=== PATIENT | male | born 1955 | race African-American/Black ===

== ENCOUNTER 2019-09-20 03:13 | Inpatient (IN) | payer OTHER ==
[~2019-09-20] VITALS: Ht 193 cm; Wt 165.4 kg
--- NOTE | 2019-09-20 03:50 | PHYS DOC ---
Past Medical History Past Medical History: CAD, Diabetes-Type II, High Cholesterol, Hypertension Additional Past Surgical Histo: Cardiac stents, R leg tissue removal, partial toe amputation on left foot Smoking Status: Never Smoker Alcohol Use: None Drug Use: None General Adult EDM: Chief Complaint: SHORTNESS OF BREATH HPI: HPI: Patient is a 64 year [id number]-qkj male presents via EMS with report of midsternal chest pain with associated nausea and shortness of breath x2 days. Reports some leg swelling and calf tenderness. Patient does report being diagnosed with COVID-19 approximately 2 weeks ago. Denies fever or chills. Denies cough. Denies trauma. Review of Systems: Review of Systems: Constitutional: Denies fever or chills Eyes: Denies redness or eye pain HENT: Denies nasal congestion or sore throat Respiratory: Denies cough; reports shortness of breath Cardiovascular: Reports chest pain; denies palpitations GI: Denies abdominal pain, nausea, or vomiting : Denies dysuria or hematuria Musculoskeletal: Denies back pain; reports chronic bilateral lower extremity edema Integument: Denies rash or skin lesions Neurologic: Denies headache, focal weakness or sensory changes Complete systems were reviewed and found to be within normal limits, except as documented in this note. Heart Score: HEART Score for Chest Pain: HEART Score for Chest Pain Response (Comments) Value History Moderately Suspicious 1 ECG Normal 0 Age >45 - < 65 1 Risk Factors >3 Risk Factors or Hx CAD 2 Troponin >3 x Normal Limit 2 Total 6 Risk Factors: Risk Factors: DM, Current or recent (<one month) smoker, HTN, HLP, family history of CAD, obesity. Risk Scores: Score 0 - 3: 2.5% MACE over next 6 weeks - Discharge Home Score 4 - 6: 20.3% MACE over next 6 weeks - Admit for Clinical Observation Score 7 - 10: 72.7% MACE over next 6 weeks - Early Invasive Strategies Physical Exam: PE: Constitutional: Well developed, obese, no acute distress, non-toxic appearance HENT: Normocephalic, atraumatic Eyes: Conjunctiva normal, no discharge Neck: Normal range of motion, supple Lungs & Thorax: No respiratory distress, equal chest rise and fall Abdomen: Soft, no tenderness, obese Skin: Warm, dry, no erythema, no rash Extremities: No tenderness, ROM intact, 3+ bilateral lower extremity edema Neurologic: Alert and oriented X 3, no focal deficits noted Psychologic: Affect normal, judgment normal EKG: EKG: @0334 NSR at 63bpm, NO ST elevation, QRS 114ms, QT/QTc 428/441ms Radiology/Procedures: Radiology/Procedures: PROCEDURE: CHEST AP ONLY AP chest. HISTORY: Chest pain, dyspnea AP view was taken of the chest. There is no pneumothorax or pleural effusion. Lungs are free of infiltrates. Heart is normal in size. IMPRESSION: 1. No acute chest disease. Electronically signed by: Juan Jose Wiggins MD (09/20/2019 7:52 AM) [id number] Course & Med Decision Making: Course & Med Decision Making Pertinent Labs and Imaging studies reviewed. (See chart for details) Patient presents with report of shortness of breath and chest pain that has been ongoing for the past 2 days. Patient also complains of some nausea. History of recent positive COVID test approximately 2 weeks ago. COVID precautions in place. Afebrile. Sats stable. Patient also with significant cardiac risk factors. EKG stable. Labs obtained and posted to chart. Initial troponin elevated. Aspirin given. BNP within normal limits. Chest x-ray without acute process. Patient requiring admission for further evaluation and treatment. Discussed with Dr. Goddard (hospitalist) who is in agreement with admission. Cardiology consult placed. Discussed findings and plan with patient, who acknowledges understanding and agreement. COVID-19 CRITERIA: The patient was evaluated during the global COVID-19 pandemic, and that diagnosis was suspected/considered upon their initial presentation. Their evaluation, treatment and testing was consistent with current guidelines for patients who present with complaints or symptoms that may be related to COVID-19. Dragon Disclaimer: Dragon Disclaimer: This electronic medical record was generated, in whole or in part, using a voice recognition dictation system. Departure Departure Impression: Primary Impression: Dyspnea Qualified Codes: R06.00 - Dyspnea, unspecified Additional Impressions: COVID-19 Elevated troponin Disposition: ADMITTED INPATIENT Admitting Physician: MIRELA (Courtney Randolph) Condition: GUARDED Justicifation of Admission Dx: Justifications for Admission: Justification of Admission Dx: Yes Comments: Dyspnea, Elevated troponin, COVID COVID-19 Assessment: COVID-19 Patient Risks: Age 65 or older: No Sign of co-morbidity: Yes Exp to person + for COVID: Yes Exp to PUI: No Travel from affected area: No Lower respiratory symptoms: Yes Fever: No PPE Use: Full PPE with N95 mask or PAPR: Yes Critical Care Time Critical care time was 30 minutes which includes time at bedside, spent in discussion of patient's care with specialists and/or family members, with interpretation of laboratory and/or radiological studies and is exclusive of procedures. DAVID SHAH DO Sep 20, 2019 03:50
[2019-09-20] MEDS ORDERED: LIDO:MAALOX 1:1 20 ML SINGLE DOSE. PO ONE (04:45)
[2019-09-20 05:13] LABS: BASO # 0.1 x10^3/uL (0.0-0.2); BASO % 1 % (0-3); EOS % 1 % (0-3); HEMOGLOBIN 15.4 g/dL (13.0-17.5); LYMPH # 1.8 x10^3/uL (1.0-4.8); LYMPH % 25 % (24-48); MEAN CORPUSCULAR HEMOGLOBIN 28 pg (25-35); MEAN CORPUSCULAR HGB CONC 33 g/dL (31-37); MEAN CORPUSCULAR VOLUME 83 fL (79-100); MONO # 0.5 x10^3/uL (0.0-1.1); MONO % 7 % (0-9); NEUT # 4.9 x10^3/uL (1.8-7.7); NEUT % 67 % (31-73); PLATELET COUNT 173 x10^3/uL (140-400); RED BLOOD COUNT 5.58 x10^6/uL (4.30-5.70); WHITE BLOOD COUNT 7.3 x10^3/uL (4.0-11.0)
[2019-09-20] MEDS ORDERED: ASPIRIN 325 MG TABLET ONE ×2 (05:18→16:47)
[2019-09-20] MEDS ORDERED: ONDANSETRON PF 4 MG/2 ML VIAL. ONE (05:22)
[2019-09-20 05:23] LABS: PROTHROMBIN TIME PATIENT 12.5 SEC (11.7-14.0)
[2019-09-20] MEDS ORDERED: ONDANSETRON ODT 4 MG TAB.RAPDIS. ONE (05:25)
[2019-09-20 05:29] LABS: CALCIUM 9.6 mg/dL (8.5-10.1); CREATININE 1.1 mg/dL (0.7-1.3); GFR 81.8
[2019-09-20] MEDS ORDERED: ASPIRIN 325 MG TABLET PO ONE ×2 (05:30→17:00)
[2019-09-20] MEDS ORDERED: ONDANSETRON PF 4 MG/2 ML VIAL. IV PRN ×2 (05:45→13:45)
[2019-09-20] MEDS ORDERED: DEXTROSE 50% 25 GM / 50ML DISP.SYRIN. IV PRN (05:45)
[2019-09-20] MEDS ORDERED: fentaNYL PF VIAL 100 MCG/2 ML VIAL IV PRN (05:45)
[2019-09-20 05:52] LABS: ALBUMIN 4.1 g/dL (3.4-5.0); ALBUMIN/GLOBULIN RATIO 1.1 (1.0-1.7); TOTAL BILIRUBIN 0.5 mg/dL (0.2-1.0); TOTAL PROTEIN 7.9 g/dL (6.4-8.2)
[2019-09-20 06:06] LABS: BILIRUBIN,URINE NEGATIVE (NEG); CLARITY,URINE CLEAR; COLOR,URINE YELLOW; NITRITE,URINE NEGATIVE (NEG); PH,URINE 5.5 (<5.0-8.0); PROTEIN,URINE 100 mg/dL (NEG-TRACE)
[2019-09-20 06:10] LABS: BACTERIA,URINE FEW /HPF (0-FEW); HYALINE CASTS, URINE FEW /HPF; RBC,URINE OCC /HPF (0-2); SQUAMOUS EPITHELIAL CELL,UR MOD /LPF
--- NOTE | 2019-09-20 06:38 | EKG ---
[facility] [address] [place] [address] Test Date: 2019-09-20 Test Time: 03:34:48 Pat Name: TRENT LOPEZ Department: Room: Gender: M Equal Opportunity Assistant: : 1955 Requested By: DAVID SHAH Order Number: [id number] Reading MD: Measurements Intervals [place] Rate: 63 P: 47 PA: 192 QRS: 7 QRSD: 114 T: 41 QT: 428 QTc: 441 Interpretive Statements SINUS RHYTHM OTHERWISE NORMAL ECG RI6.01 No previous ECG available for comparison
--- NOTE | 2019-09-20 07:55 | RAD ---
AP chest. HISTORY: Chest pain, dyspnea AP view was taken of the chest. There is no pneumothorax or pleural effusion. Lungs are free of infiltrates. Heart is normal in size. IMPRESSION: 1. No acute chest disease. Electronically signed by: Juan Jose Wiggins MD (09/20/2019 7:52 AM) [id number]
[2019-09-20] MEDS: INSULIN LISPRO 300 UNITS/3 ML VIAL. SQ SCH ×3 (08:00→17:00)
--- NOTE | 2019-09-20 08:35 | PDOC1 ---
History and Physical Date of Admission Date of Admission DATE: 09/20/19 TIME: 08:35 Identification/Chief Complaint Chief Complaint 64 year oldsml-tuhx-auu male presents via EMS with report of midsternal chest pain with associated nausea and shortness of breath x2 days. Reports some leg swelling and calf tenderness. Patient does report being diagnosed with COVID-19 approximately 2 weeks ago. Denies fever or chills. Denies cough. Denies trauma. RAPID COVID-19 HERE NEG 09/19 troponinn elevated overnight Past Medical History Past Medical History Past Medical History Past Medical History: CAD, Diabetes-Type II, High Cholesterol, Hypertension Additional Past Surgical Histo: Cardiac stents, R leg tissue removal, partial toe amputation on left foot Smoking Status: Never Smoker Alcohol Use: None Drug Use: None FHX OBESITY Family History Family History: Hypertension Social History Smoke: <1 pack per day ALCOHOL: occassional Drugs: None Current Problem List Problem List Problems Medical Problems: (1) COVID-19 Status: Acute (2) Dyspnea Status: Acute (3) Elevated troponin Status: Acute Current Medications Current Medications Current Medications Multi-Ingredient Mouthwash/Gargle (Gi Cocktail) 20 ml 1X ONCE PO Last administered on 09/20/19at 05:15; Start 09/20/19 at 04:45; Stop 09/20/19 at 05:18; Status DC Aspirin (Lainey Aspirin) 325 mg 1X ONCE PO Last administered on 09/20/19at 05:23; Start 09/20/19 at 05:30; Stop 09/20/19 at 05:31; Status DC Aspirin (Lainey Aspirin) 325 mg STK-MED ONCE .ROUTE ; Start 09/20/19 at 05:18; Stop 09/20/19 at 05:18; Status DC Ondansetron HCl (Zofran) 4 mg STK-MED ONCE .ROUTE ; Start 09/20/19 at 05:22; Stop 09/20/19 at 05:23; Status DC Ondansetron HCl (Zofran Odt) 4 mg STK-MED ONCE .ROUTE ; Start 09/20/19 at 05:25; Stop 09/20/19 at 05:26; Status DC Ondansetron HCl (Zofran) 4 mg PRN Q8HRS PRN IV NAUSEA/VOMITING 1ST CHOICE; Start 09/20/19 at 05:45; Stop 09/21/19 at 05:44 Fentanyl Citrate (Fentanyl 2ml Vial) 50 mcg PRN Q2HRS PRN IV SEVERE PAIN 7-10; Start 09/20/19 at 05:45 Insulin Human Lispro (HumaLOG) 0-5 UNITS TIDWMEALS SQ ; Start 09/20/19 at 08:00 Dextrose (Dextrose 50%-Water Syringe) 12.5 gm PRN Q15MIN PRN IV SEE COMMENTS; Start 09/20/19 at 05:45 Allergies Allergies: Coded Allergies: sulfamethoxazole (Verified Allergy, Severe, 09/20/19) trimethoprim (Verified Allergy, Severe, 09/20/19) ROS Review of System Review of Systems: Review of Systems: Constitutional: Denies fever or chills Eyes: Denies redness or eye pain HENT: Denies nasal congestion or sore throat Respiratory: Denies cough; reports shortness of breath Cardiovascular: Reports chest pain; denies palpitations GI: Denies abdominal pain, nausea, or vomiting : Denies dysuria or hematuria Musculoskeletal: Denies back pain; reports chronic bilateral lower extremity edema Integument: Denies rash or skin lesions Neurologic: Denies headache, focal weakness or sensory changes 14 PT systems were reviewed and found to be within normal limits, except as documented Physical Exam Physical Exam Constitutional: Well developed, obese, no acute distress, non-toxic appearance HENT: Normocephalic, atraumatic Eyes: Conjunctiva normal, no discharge Neck: Normal range of motion, supple Lungs & Thorax: No respiratory distress, equal chest rise and fall Abdomen: Soft, no tenderness, obese Skin: Warm, dry, no erythema, no rash Extremities: No tenderness, ROM intact, 3+ bilateral lower extremity edema Neurologic: Alert and oriented X 3, no focal deficits noted Psychologic: Affect normal, judgment normal General: Alert, Oriented X3, Cooperative, No acute distress HEENT: Atraumatic, PERRLA, Mucous membr. moist/pink Abdomen: Normal bowel sounds, Soft Rectal Exam: not examined Extremities: No cyanosis Neuro: Normal speech, Cranial nerves 3-12 NL Psych/Mental Status: Mood NL Vitals Vitals Vital Signs Date Time Temp Pulse Resp B/P (MAP) Pulse Ox O2 Delivery O2 Flow Rate FiO2 09/20/19 07:11 65 169/81 (110) 98 Room Air 09/20/19 03:14 97.7 18 97.7 Labs Labs Laboratory Tests Test 09/20/19 05:00 09/20/19 05:30 White Blood Count 7.3 x10^3/uL (4.0-11.0) Red Blood Count 5.58 x10^6/uL (4.30-5.70) Hemoglobin 15.4 g/dL (13.0-17.5) Hematocrit 46.0 % (39.0-53.0) Mean Corpuscular Volume 83 fL (79-100) Mean Corpuscular Hemoglobin 28 pg (25-35) Mean Corpuscular Hemoglobin Concent 33 g/dL (31-37) Red Cell Distribution Width 15.0 % (11.5-14.5) Platelet Count 173 x10^3/uL (140-400) Neutrophils (%) (Auto) 67 % (31-73) Lymphocytes (%) (Auto) 25 % (24-48) Monocytes (%) (Auto) 7 % (0-9) Eosinophils (%) (Auto) 1 % (0-3) Basophils (%) (Auto) 1 % (0-3) Neutrophils # (Auto) 4.9 x10^3/uL (1.8-7.7) Lymphocytes # (Auto) 1.8 x10^3/uL (1.0-4.8) Monocytes # (Auto) 0.5 x10^3/uL (0.0-1.1) Eosinophils # (Auto) 0.0 x10^3/uL (0.0-0.7) Basophils # (Auto) 0.1 x10^3/uL (0.0-0.2) Prothrombin Time 12.5 SEC (11.7-14.0) Prothromb Time International Ratio 1.0 (0.8-1.1) Activated Partial Thromboplast Time 24 SEC (24-38) Sodium Level 138 mmol/L (136-145) Potassium Level 4.0 mmol/L (3.5-5.1) Chloride Level 100 mmol/L (98-107) Carbon Dioxide Level 26 mmol/L (21-32) Anion Gap 12 (6-14) Blood Urea Nitrogen 15 mg/dL (8-26) Creatinine 1.1 mg/dL (0.7-1.3) Estimated GFR (Cockcroft-Gault) 81.8 BUN/Creatinine Ratio 14 (6-20) Glucose Level 241 mg/dL (70-99) Lactic Acid Level 2.0 mmol/L (0.4-2.0) Calcium Level 9.6 mg/dL (8.5-10.1) Magnesium Level 2.0 mg/dL (1.8-2.4) Ferritin 219 ng/mL (26-388) Total Bilirubin 0.5 mg/dL (0.2-1.0) Aspartate Amino Transf (AST/SGOT) 38 U/L (15-37) Alanine Aminotransferase (ALT/SGPT) 26 U/L (16-63) Alkaline Phosphatase 178 U/L (46-116) Lactate Dehydrogenase 252 U/L (85-227) Creatine Kinase 138 U/L (39-308) Creatine Kinase MB (Mass) 2.3 ng/mL (0.0-3.6) Creatine Kinase MB Relative Index 1.7 % (0-4) Troponin I Quantitative 0.197 ng/mL (0.000-0.055) EB-Oav-V-Type Natriuretic Peptide 147 pg/mL (0-124) Total Protein 7.9 g/dL (6.4-8.2) Albumin 4.1 g/dL (3.4-5.0) Albumin/Globulin Ratio 1.1 (1.0-1.7) Lipase 154 U/L (73-393) Urine Collection Type Unknown Urine Color Yellow Urine Clarity Clear Urine pH 5.5 (<5.0-8.0) Urine Specific [place] 1.015 (1.000-1.030) Urine Protein 100 mg/dL (NEG-TRACE) Urine Glucose (UA) 100 mg/dL (NEG) Urine Ketones (Stick) 15 mg/dL (NEG) Urine Blood Trace (NEG) Urine Nitrite Negative (NEG) Urine Bilirubin Negative (NEG) Urine Urobilinogen Dipstick 1.0 mg/dL (0.2 mg/dL) Urine Leukocyte Esterase Negative (NEG) Urine RBC Occ /HPF (0-2) Urine WBC 1-4 /HPF (0-4) Urine Squamous Epithelial Cells Mod /LPF Urine Bacteria Few /HPF (0-FEW) Urine Hyaline Casts Few /HPF Urine Mucus Mod /LPF Laboratory Tests Test 09/20/19 05:00 09/20/19 05:30 White Blood Count 7.3 x10^3/uL (4.0-11.0) Red Blood Count 5.58 x10^6/uL (4.30-5.70) Hemoglobin 15.4 g/dL (13.0-17.5) Hematocrit 46.0 % (39.0-53.0) Mean Corpuscular Volume 83 fL (79-100) Mean Corpuscular Hemoglobin 28 pg (25-35) Mean Corpuscular Hemoglobin Concent 33 g/dL (31-37) Red Cell Distribution Width 15.0 % (11.5-14.5) Platelet Count 173 x10^3/uL (140-400) Neutrophils (%) (Auto) 67 % (31-73) Lymphocytes (%) (Auto) 25 % (24-48) Monocytes (%) (Auto) 7 % (0-9) Eosinophils (%) (Auto) 1 % (0-3) Basophils (%) (Auto) 1 % (0-3) Neutrophils # (Auto) 4.9 x10^3/uL (1.8-7.7) Lymphocytes # (Auto) 1.8 x10^3/uL (1.0-4.8) Monocytes # (Auto) 0.5 x10^3/uL (0.0-1.1) Eosinophils # (Auto) 0.0 x10^3/uL (0.0-0.7) Basophils # (Auto) 0.1 x10^3/uL (0.0-0.2) Prothrombin Time 12.5 SEC (11.7-14.0) Prothromb Time International Ratio 1.0 (0.8-1.1) Activated Partial Thromboplast Time 24 SEC (24-38) Sodium Level 138 mmol/L (136-145) Potassium Level 4.0 mmol/L (3.5-5.1) Chloride Level 100 mmol/L (98-107) Carbon Dioxide Level 26 mmol/L (21-32) Anion Gap 12 (6-14) Blood Urea Nitrogen 15 mg/dL (8-26) Creatinine 1.1 mg/dL (0.7-1.3) Estimated GFR (Cockcroft-Gault) 81.8 BUN/Creatinine Ratio 14 (6-20) Glucose Level 241 mg/dL (70-99) Lactic Acid Level 2.0 mmol/L (0.4-2.0) Calcium Level 9.6 mg/dL (8.5-10.1) Magnesium Level 2.0 mg/dL (1.8-2.4) Ferritin 219 ng/mL (26-388) Total Bilirubin 0.5 mg/dL (0.2-1.0) Aspartate Amino Transf (AST/SGOT) 38 U/L (15-37) Alanine Aminotransferase (ALT/SGPT) 26 U/L (16-63) Alkaline Phosphatase 178 U/L (46-116) Lactate Dehydrogenase 252 U/L (85-227) Creatine Kinase 138 U/L (39-308) Creatine Kinase MB (Mass) 2.3 ng/mL (0.0-3.6) Creatine Kinase MB Relative Index 1.7 % (0-4) Troponin I Quantitative 0.197 ng/mL (0.000-0.055) HL-Rqm-K-Type Natriuretic Peptide 147 pg/mL (0-124) Total Protein 7.9 g/dL (6.4-8.2) Albumin 4.1 g/dL (3.4-5.0) Albumin/Globulin Ratio 1.1 (1.0-1.7) Lipase 154 U/L (73-393) Urine Collection Type Unknown Urine Color Yellow Urine Clarity Clear Urine pH 5.5 (<5.0-8.0) Urine Specific [place] 1.015 (1.000-1.030) Urine Protein 100 mg/dL (NEG-TRACE) Urine Glucose (UA) 100 mg/dL (NEG) Urine Ketones (Stick) 15 mg/dL (NEG) Urine Blood Trace (NEG) Urine Nitrite Negative (NEG) Urine Bilirubin Negative (NEG) Urine Urobilinogen Dipstick 1.0 mg/dL (0.2 mg/dL) Urine Leukocyte Esterase Negative (NEG) Urine RBC Occ /HPF (0-2) Urine WBC 1-4 /HPF (0-4) Urine Squamous Epithelial Cells Mod /LPF Urine Bacteria Few /HPF (0-FEW) Urine Hyaline Casts Few /HPF Urine Mucus Mod /LPF Images Images AP chest. HISTORY: Chest pain, dyspnea AP view was taken of the chest. There is no pneumothorax or pleural effusion. Lungs are free of infiltrates. Heart is normal in size. IMPRESSION: 1. No acute chest disease. Electronically signed by: Patrick Daly MD (09/20/2019 7:52 AM) [id number] DICTATED and SIGNED BY: PATRICK DALY MD DATE: 09/20/19751 AP chest. HISTORY: Chest pain, dyspnea AP view was taken of the chest. There is no pneumothorax or pleural effusion. Lungs are free of infiltrates. Heart is normal in size. IMPRESSION: 1. No acute chest disease. Electronically signed by: Patrick Daly MD (09/20/2019 7:52 AM) [id number] DICTATED and SIGNED BY: PATRICK DALY MD DATE: 09/20/19751 VTE Prophylaxis Ordered VTE Prophylaxis Devices: Yes VTE Pharmacological Prophylaxi: Yes Assessment/Plan Assessment/Plan impression 1. unstable angina 2. NSTEMI; trop highest 4.3 3. CAD s/p PCI/stent x3 at the [facility] 4. Accelerated hypertension 5. Hyperlipidemia 6. Diabetes, II 7. H/o Hep C 8. morbid obesity 9. partial toe amputation on left foot, remote plan admit consult cardiology covid neg here cvc bed iv bp control heparin drip protocol Justicifation of Admission Dx: Justifications for Admission: Justification of Admission Dx: Yes KIAH PALACIOS MD Sep 20, 2019 08:35
[2019-09-20] MEDS ORDERED: HEPARIN 25,000UTS/250ML PREMIX 250 ML IV PRN (10:30)
[2019-09-20] MEDS ORDERED: HEPARIN for IV BOLUS 10,000 UNIT/10 ML VIAL. IV PRN (10:30)
[2019-09-20 11:00] VITALS: BP 154/77
[2019-09-20] MEDS: MORPHINE SULFATE 2 MG/ML VIAL. IV PRN ×3 (11:27→20:53)
--- NOTE | 2019-09-20 11:49 | PDOC2 ---
IMAN LEE BARREL RIFLER BROACH 09/20/19 1149: CARDIAC CONSULT DATE OF CONSULT Date of Consult DATE: 09/20/19 TIME: 11:12 REASON FOR CONSULT Reason for Consult: Elevated troponin REFERRING PHYSICIAN Referring Physician: Dr. Griggs SOURCE Source: Chart review, Patient HISTORY OF PRESENT ILLNESS HISTORY OF PRESENT ILLNESS This is a 64 yo male who presented secondary to chest pain. Patient reports pain began a couple days ago. Located across his chest. Squeezing in nature. Has been in intermittent. No specific worsening or relieving factors. 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 Would not go away so he came into the ED for further evaluation and treatment. Associated with shortness of breath. No dizziness, diaphoresis, palpitations, or nausea/vomiting. Diagnosed with COVID 08/31/19. Denies any fevers, symptoms. Resides at [facility]. PAST MEDICAL HISTORY Cardiovascular: CAD, HTN, Hyperlipidemia Pulmonary: COPD GI: GERD Hepatobiliary: Hep A/B/C (C) Musculoskeletal: Osteoarthritis Infectious disease: No pertinent hx ENT: No pertinent hx Renal/: No pertinent hx Endocrine: Diabetes Dermatology: No pertinent hx PAST SURGICAL HISTORY Past Surgical History: Other (PCI/stent 05/2015) SOCIAL HISTORY Smoke: <1 pack per day ALCOHOL: other (H/o heavy used. clean 2014) Drugs: Cocaine (last used 2009), Crystal meth (last used 2014) Lives: Roommate ([facility] nursing home ) CURRENT MEDICATIONS CURRENT MEDICATIONS Current Medications Medications (Trade) Dose Ordered Sig/Supriya Route PRN Reason Start Time Stop Time Status Last Admin Dose Admin Multi-Ingredient Mouthwash/Gargle (Gi Cocktail) 20 ml 1X ONCE PO 09/20/19 04:45 09/20/19 05:18 DC 09/20/19 05:15 Aspirin (Lainye Aspirin) 325 mg 1X ONCE PO 09/20/19 05:30 09/20/19 05:31 DC 09/20/19 05:23 ALLERGIES ALLERGIES: Coded Allergies: sulfamethoxazole (Verified Allergy, Severe, 09/20/19) trimethoprim (Verified Allergy, Severe, 09/20/19) ROS Review of System 14 point ROS conducted with pertinent positives noted above in HPI PHYSICAL EXAM General: Alert, Oriented X3, Cooperative, No acute distress HEENT: Atraumatic Lungs: Clear to auscultation, Normal air movement Heart: Regular rate Abdomen: Soft, No tenderness Extremities: No edema, Normal pulses Skin: No breakdown, No significant lesion Neuro: Normal speech, Sensation intact Psych/Mental Status: Mental status NL, Mood NL MUSCULOSKELETAL: Osteoarthritic changes both hands VITALS/I&O VITALS/I&O: Vital Signs Date Time Temp Pulse Resp B/P (MAP) Pulse Ox O2 Delivery O2 Flow Rate FiO2 09/20/19 07:11 65 169/81 (110) 98 Room Air 09/20/19 03:14 97.7 18 97.7 LABS Lab: Laboratory Tests Test 09/20/19 05:00 09/20/19 05:30 09/20/19 08:45 White Blood Count 7.3 x10^3/uL (4.0-11.0) Red Blood Count 5.58 x10^6/uL (4.30-5.70) Hemoglobin 15.4 g/dL (13.0-17.5) Hematocrit 46.0 % (39.0-53.0) Mean Corpuscular Volume 83 fL (79-100) Mean Corpuscular Hemoglobin 28 pg (25-35) Mean Corpuscular Hemoglobin Concent 33 g/dL (31-37) Red Cell Distribution Width 15.0 % (11.5-14.5) H Platelet Count 173 x10^3/uL (140-400) Neutrophils (%) (Auto) 67 % (31-73) Lymphocytes (%) (Auto) 25 % (24-48) Monocytes (%) (Auto) 7 % (0-9) Eosinophils (%) (Auto) 1 % (0-3) Basophils (%) (Auto) 1 % (0-3) Neutrophils # (Auto) 4.9 x10^3/uL (1.8-7.7) Lymphocytes # (Auto) 1.8 x10^3/uL (1.0-4.8) Monocytes # (Auto) 0.5 x10^3/uL (0.0-1.1) Eosinophils # (Auto) 0.0 x10^3/uL (0.0-0.7) Basophils # (Auto) 0.1 x10^3/uL (0.0-0.2) Prothrombin Time 12.5 SEC (11.7-14.0) Prothrombin Time INR 1.0 (0.8-1.1) Activated Partial Thromboplast Time 24 SEC (24-38) Sodium Level 138 mmol/L (136-145) Potassium Level 4.0 mmol/L (3.5-5.1) Chloride Level 100 mmol/L (98-107) Carbon Dioxide Level 26 mmol/L (21-32) Anion Gap 12 (6-14) Blood Urea Nitrogen 15 mg/dL (8-26) Creatinine 1.1 mg/dL (0.7-1.3) Estimated GFR (Cockcroft-Gault) 81.8 BUN/Creatinine Ratio 14 (6-20) Glucose Level 241 mg/dL (70-99) H Lactic Acid Level 2.0 mmol/L (0.4-2.0) Calcium Level 9.6 mg/dL (8.5-10.1) Magnesium Level 2.0 mg/dL (1.8-2.4) Ferritin 219 ng/mL (26-388) Total Bilirubin 0.5 mg/dL (0.2-1.0) Aspartate Amino Transferase (AST) 38 U/L (15-37) H Alanine Aminotransferase (ALT) 26 U/L (16-63) Alkaline Phosphatase 178 U/L (46-116) H Lactate Dehydrogenase 252 U/L (85-227) H Creatine Kinase 138 U/L (39-308) Creatine Kinase MB (Mass) 2.3 ng/mL (0.0-3.6) Creatine Kinase MB Relative Index 1.7 % (0-4) Troponin I Quantitative 0.197 ng/mL (0.000-0.055) 4.313 ng/mL (0.000-0.055) OX-Qfr-Z-Type Natriuretic Peptide 147 pg/mL (0-124) H Total Protein 7.9 g/dL (6.4-8.2) Albumin 4.1 g/dL (3.4-5.0) Albumin/Globulin Ratio 1.1 (1.0-1.7) Lipase 154 U/L (73-393) Urine Collection Type Unknown Urine Color Yellow Urine Clarity Clear Urine pH 5.5 (<5.0-8.0) Urine Specific [place] 1.015 (1.000-1.030) Urine Protein 100 mg/dL (NEG-TRACE) Urine Glucose (UA) 100 mg/dL (NEG) Urine Ketones (Stick) 15 mg/dL (NEG) Urine Blood Trace (NEG) Urine Nitrite Negative (NEG) Urine Bilirubin Negative (NEG) Urine Urobilinogen Dipstick 1.0 mg/dL (0.2 mg/dL) Urine Leukocyte Esterase Negative (NEG) Urine RBC Occ /HPF (0-2) Urine WBC 1-4 /HPF (0-4) Urine Squamous Epithelial Cells Mod /LPF Urine Bacteria Few /HPF (0-FEW) Urine Hyaline Casts Few /HPF Urine Mucus Mod /LPF Laboratory Tests 09/20/19 05:00 Laboratory Tests 09/20/19 05:00 HEART CATH HEART CATH 1. Chest pain, typical features 2. NSTEMI; trop highest 4.3 3. CAD s/p [facility]. Does not routinely follow with seo intern 4. Accelerated hypertension; initially controlled, then elevated. 5. Hyperlipidemia 6. Diabetes, II 7. H/o Hep C 8. Recent COVID; + 08/31/19. Denies any symptoms Recommendations ASA Start heparin gtt per CV protocol Lipids, TSH Add BB, ACEi Hydralazine IV PRN Echo to assess LV systolic function Given presentation along with significant history and risk factors in the setting of NSTEMI, recommend cardiac cath with possible PCI. R/b/a discussed with patient and he is agreeable. Will proceed with later this afternoon. RASHEL GARCÍA MD 09/21/19 0736: CARDIAC CONSULT ASSESSMENT/PLAN ASSESSMENT/PLAN Late entry for 09/20/2019 Pt. seen and examined. Agree with above ACID CONDITIONER note. Successful complex PCI of the RCA IMAN LEE APRN Sep 20, 2019 11:49 RASHEL GARCÍA MD Sep 21, 2019 07:36
[2019-09-20] MEDS: ASPIRIN ENTERIC COATED 81 MG TABLET.DR. PO SCH (12:00)
--- NOTE | 2019-09-20 12:06 | NUR ---
SW following. Reviewed chart and discussed with RN. Pt resides at [facility]. Pt COVID negative and on room air. Pt NPO and cardiology has been consulted. SW to follow. Addendum: 09/20/19 at 1243 by RUTH GREEN LV for [facility] at [phone] to coordinate care
--- NOTE | 2019-09-20 13:12 | EKG ---
[facility] [address] [place] [address] Test Date: 2019-09-20 Test Time: 03:34:48 Pat Name: TRENT LOPEZ Department: Room: [facility] 1 Gender: M Planogrammer: : 1955 Requested By: IMAN LEE Order Number: [id number] Reading MD: Measurements Intervals [place] Rate: P: [place]: QRS: QRSD: T: QT: QTc: Interpretive Statements
[2019-09-20] MEDS ORDERED: DOCUSATE SODIUM 100 MG CAPSULE. PO PRN (13:45)
[2019-09-20] MEDS ORDERED: guaiFENesin ORAL 200 MG/10 ML LIQUID. PO PRN (13:45)
[2019-09-20] MEDS ORDERED: 0.9 % SODIUM CHLORIDE 10 ML DISP.SYRIN. IV PRN (13:45)
[2019-09-20] MEDS ORDERED: ALBUTEROL SULFATE 2.5 MG/3 ML NEBU. NEB PRN (13:45)
[2019-09-20] MEDS ORDERED: ACETAMINOPHEN 325 MG TABLET. PO PRN (13:45)
[2019-09-20] MEDS ORDERED: MAG HYDROX/ALUMINUM HYD/SIMETH 30 ML ORAL.SUSP PO PRN (13:45)
[2019-09-20] MEDS ORDERED: hydrALAZINE 20 MG/ML VIAL. IVP PRN (14:00)
[2019-09-20] MEDS: METOPROLOL TART IMMED RELEASE 25 MG TABLET. PO SCH ×2 (14:29→20:43)
[2019-09-20] MEDS: LISINOPRIL 5 MG TABLET. PO SCH (14:29)
[2019-09-20] MEDS ORDERED: VERAPAMIL 5 MG/2 ML VIAL. ONE (14:34)
[2019-09-20] MEDS ORDERED: fentaNYL PF VIAL 100 MCG/2 ML VIAL ONE (14:34)
[2019-09-20] MEDS ORDERED: HEPARIN for IV BOLUS 10,000 UNIT/10 ML VIAL. ONE (14:34)
[2019-09-20] MEDS ORDERED: MIDAZOLAM HCL/PF 5 MG/5 ML VIAL. ONE (14:34)
[2019-09-20] MEDS ORDERED: METF500T16 PO (14:54)
[2019-09-20] MEDS ORDERED: NORT25CA PO (14:54)
[2019-09-20] MEDS ORDERED: FURO-68 PO (14:54)
[2019-09-20] MEDS ORDERED: ASPI-886 PO (14:54)
[2019-09-20] MEDS ORDERED: CARV3.12 PO (14:54)
[2019-09-20] MEDS ORDERED: DIPH25TA64 PO (14:54)
[2019-09-20] MEDS ORDERED: FOLI0.8C PO (14:54)
[2019-09-20] MEDS ORDERED: ATOR80TA72 PO (14:54)
[2019-09-20] MEDS ORDERED: CARB15DR3 EACHEYE (14:54)
[2019-09-20] MEDS ORDERED: ALBU2.5V8 IH (14:54)
[2019-09-20] MEDS ORDERED: CLOP75TA PO (14:54)
[2019-09-20] MEDS ORDERED: INSU100I13 SQ (14:54)
[2019-09-20] MEDS ORDERED: CHOL40003 PO (14:54)
[2019-09-20] MEDS ORDERED: TRIA15CR TP (14:54)
[2019-09-20] MEDS ORDERED: SPIR25TA PO (14:54)
[2019-09-20] MEDS ORDERED: LOSA-73 PO (14:54)
[2019-09-20] MEDS ORDERED: SILD50TA PO (14:54)
[2019-09-20] MEDS ORDERED: GABA600T7 PO (14:54)
[2019-09-20 15:00] VITALS: BP 177/85
[2019-09-20] MEDS ORDERED: LIDOCAINE 1% PF 2 ML VIAL. ONE (15:14)
[2019-09-20] MEDS ORDERED: IODIXANOL 320 MG/ML 100 ML VIAL. ONE ×2 (15:14→16:20)
--- NOTE | 2019-09-20 15:35 | NUR ---
Pt left for procedure at approx 1505.
--- NOTE | 2019-09-20 15:51 | NUR ---
[facility] for [facility] Taylor Jeffers at [phone].
[2019-09-20] MEDS ORDERED: NITROGLYCERIN 200 MCG/2 ML SYRINGE FOR CATH/VASC LAB. IART ONE (16:00)
[2019-09-20] MEDS ORDERED: HEPARIN for IV BOLUS 10,000 UNIT/10 ML VIAL. IART ONE (16:00)
[2019-09-20] MEDS ORDERED: VERAPAMIL 5 MG/2 ML VIAL. IART ONE (16:00)
[2019-09-20] MEDS ORDERED: LIDOCAINE 1% PF 2 ML VIAL. INJ ONE (16:00)
[2019-09-20] MEDS ORDERED: MIDAZOLAM HCL/PF 5 MG/5 ML VIAL. IV ONE (16:00)
[2019-09-20] MEDS ORDERED: IODIXANOL 320 MG/ML 100 ML VIAL. IART ONE (16:00)
[2019-09-20] MEDS ORDERED: fentaNYL PF VIAL 100 MCG/2 ML VIAL IV ONE (16:00)
[2019-09-20] MEDS ORDERED: HEPARIN for IV BOLUS 10,000 UNIT/10 ML VIAL. IV ONE (16:15)
[2019-09-20] MEDS ORDERED: TIROFIBAN 5MG -0.9% NS 100 ML IV ONE ×2 (16:20→16:36)
[2019-09-20] MEDS: TIROFIBAN 5MG -0.9% NS 100 ML IV PRN ×3 (16:39→20:43)
[2019-09-20] MEDS ORDERED: CLOPIDOGREL BISULFATE 75 MG TABLET ONE (16:46)
[2019-09-20] MEDS ORDERED: CLOPIDOGREL BISULFATE 75 MG TABLET PO ONE (17:00)
[2019-09-20 17:10] VITALS: BP 176/90
[2019-09-20 17:22] VITALS: BP 176/90
[2019-09-20 19:20] VITALS: BP 162/76
[2019-09-20] MEDS: LORazepam 0.5 MG TABLET PO PRN (20:53)
[2019-09-20 23:53] VITALS: BP 115/60
[2019-09-21] MEDS: TIROFIBAN 5MG -0.9% NS 100 ML IV PRN (01:18)
[2019-09-21 03:32] VITALS: BP 110/61
[2019-09-21 04:30] LABS: HEMATOCRIT 38.9 % (39.0-53.0); HEMOGLOBIN 12.9 g/dL (13.0-17.5); RED BLOOD COUNT 4.63 x10^6/uL (4.30-5.70); RED CELL DISTRIBUTION WIDTH 15.1 % (11.5-14.5)
[2019-09-21 05:06] LABS: CHOLESTEROL/HDL RATIO 4.6
[2019-09-21] MEDS: MORPHINE SULFATE 2 MG/ML VIAL. IV PRN ×5 (05:54→21:28)
[2019-09-21] MEDS: LORazepam 0.5 MG TABLET PO PRN (05:54)
[2019-09-21 07:00] VITALS: BP 115/59
--- NOTE | 2019-09-21 07:18 | CARD ---
MR#: [id number] Date of Study: 09/20/2019 Ordering Physician: IMAN LEE, Referring Physician: IMAN LEE, Tech: RT Cierra (R) ELLE APPROVED REPORT Technologist: RT Cierra (R) ELLE Nurse: Moriah Urrutia R.N. Procedure(s) performed: FLUORO TIME: 26.4 MIN DOSE: 516 Gycm2 Moderate Sedation: 98 min Contrast: 269ml LHC, Coronary angiography, Complex PCI of the RCA HISTORY The patient is a 64 year-old male with a history of : coronary artery disease, hypertension, dyslipid emia. INDICATION The indication(s) include : non-STEMI . CS Clinical Frailty Scale [facility] Clinical Frailty Scale: Managing Well Heart Failure Heart Failure: Yes If Yes, Newly Diagnosed: Yes If Yes, HF Type: Diastolic If Yes, NYHA Class: Class II PROCEDURE NARRATIVE Clinical information: 64-year-old man presented to the hospital in the setting of a stuttering episodes of chest pain. He has known coronary disease with a prior PCI. His troponin was elevated and he was brought to the cat [facility] laboratory for further evaluation. Procedure details: After appropriate informed consent the right wrist was prepped and draped in usual sterile fashion. A 6 Faroese introducer sheath was placed in the right radial artery without any difficulty. Diagnosti c angiography of the right and left coronary arteries was performed with a 6 Faroese TIG catheter. Findings: Left main is a large-caliber vessel with normal angiographic appearance LAD is a moderate caliber vessel with a patent proximal stent. D1 is a small caliber vessel with normal angiographic appearance Ramus is a large caliber vessel with normal angiographic appearance Left circumflex is a moderate caliber vessel with normal angiographic appearance RCA is a large caliber tortuous dominant vessel with a proximal 70% and distal 100% occlusion. Interventional technique: Complex PCI of the RCA Heparin and tirofiban were used for anticoagulation. Through a 6 Faroese JR4 guide catheter a pro-carlos er wire was advanced to the distal RCA but could not traverse the occlusion. Next a Choice PT wire w as used to cross the occlusion. Balloon angioplasty was performed with a 2.5 x 15 mm balloon. The l esion was then stented with a 3.5 x 18 mm resolute drug-eluting stent with the help of a guide liner. Despite multiple attempts we were unable to pass a noncompliant balloon to the stented due to signi ficant tortuosity in the proximal aspect of the vessel. During manipulation wire access was lost. T herefore, the JR4 guide was exchanged for a AL-1 guide catheter. This provided better support. The distal RCA was then recrossed with a pro-water wire. Balloon angioplasty was performed with a 3.75 m m noncompliant balloon of the distal RCA stent. Attention was then turned to the proximal RCA. Aspi ration thrombectomy was attempted as it was felt that this may be thrombus related to guide liner and balloon manipulation and a severely tortuous RCA. This did not significantly improve the proximal s tenosis. The proximal stenosis was then treated with a resolute 4.5 x 18 mm drug-eluting stent at no sharon pressures. Final angiography demonstrated excellent stent expansion of the proximal distal seg ments and no evidence of thrombus or guide or wire related complications. The patient received Plavi x at case completion. The right radial sheath was removed and a Terumo radial band was applied for hemostasis. ERNESTO Flow ERNESTO Flow (Pre-Intervention): ERNESTO-0 ERNESTO-3 Conclusion 1. Two-vessel coronary artery disease 2. Successful complex PCI of the RCA with implantation of a Resolute 3.5 x 18 mm distal RCA stent, a nd a proximal Resolute 4.5 x 18 mm stent. Recommendations ASA 81mg daily Plavix 75mg daily High dose statin therapy Monitor for increase risk of thrombosis given recent COVID infection. Signed by : Akira Hyde, Electronically Approved : 09/21/2019 07:18:15
[2019-09-21] MEDS: ASPIRIN ENTERIC COATED 81 MG TABLET.DR. PO SCH (08:00)
[2019-09-21] MEDS: CLOPIDOGREL BISULFATE 75 MG TABLET PO SCH (08:00)
[2019-09-21] MEDS: METOPROLOL TART IMMED RELEASE 25 MG TABLET. PO SCH ×2 (08:07→21:19)
[2019-09-21] MEDS: LISINOPRIL 5 MG TABLET. PO SCH (08:07)
[2019-09-21] MEDS: INSULIN LISPRO 300 UNITS/3 ML VIAL. SQ SCH ×3 (08:37→17:00)
--- NOTE | 2019-09-21 08:58 | PDOC ---
PROGRESS NOTES Date of Service: DATE: 09/21/19 TIME: 08:58 Chief Complaint Chief Complaint VTE Prophylaxis Ordered VTE Prophylaxis Devices: Yes VTE Pharmacological Prophylaxi: Yes Assessment/Plan Assessment/Plan impression 1. unstable angina 2. NSTEMI; trop highest 4.3 3. CAD s/p PCI/stent x3 at the MD 4. Accelerated hypertension 5. Hyperlipidemia 6. Diabetes, II 7. H/o Hep C 8. morbid obesity 9. 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 09/19 ASA 81mg daily Plavix 75mg daily High dose statin therapy Monitor for increase risk of thrombosis given recent COVID infection. 38 MIN PT exam, chart review, > 50% of time spent with exam, chart review, pt care coordination Justicifation of Admission Dx: Justicifation of Admission Dx: Justifications for Admission: Justification of Admission Dx: Yes Vitals Vitals Vital Signs Date Time Temp Pulse Resp B/P (MAP) Pulse Ox O2 Delivery O2 Flow Rate FiO2 09/21/19 08:38 96 Room Air 2.0 09/21/19 07:00 98.4 60 18 115/59 (77) 98.4 Physical Exam General: Alert, Oriented X3, Cooperative, No acute distress Heart: Regular rate Abdomen: Soft, No tenderness Extremities: No edema, Normal pulses Skin: No breakdown, No significant lesion Labs LABS APPROVED REPORT Technologist: Marianne Duarte, RT (R) Nurse: Moriah Urrutia R.N. Procedure(s) performed: FLUORO TIME: 26.4 MIN DOSE: 516 Gycm2 Moderate Sedation: 98 min Contrast: 269ml [facility], Coronary angiography, Complex PCI of the RCA HISTORY The patient is a 64 year-old male with a history of : coronary artery disease, hypertension, dyslipidemia. INDICATION The indication(s) include : non-STEMI . [facility] Clinical Frailty Scale [facility] Clinical Frailty Scale: Managing Well Heart Failure Heart Failure: Yes If Yes, Newly Diagnosed: Yes If Yes, HF Type: Diastolic If Yes, NYHA Class: Class II PROCEDURE NARRATIVE Clinical information: 64-year-old man presented to the hospital in the setting of a stuttering episodes of chest pain. He has known coronary disease with a prior PCI. His troponin was elevated and he was brought to the catheterization laboratory for f urther evaluation. Procedure details: After appropriate informed consent the right wrist was prepped and draped in usual sterile fashion. A 6 Bangladeshi introducer sheath was placed in the right radial artery without any difficulty. Diagnostic angiography of the right and left coronary arteries was performed with a 6 Bangladeshi TIG catheter. Findings: Left main is a large-caliber vessel with normal angiographic appearance LAD is a moderate caliber vessel with a patent proximal stent. D1 is a small caliber vessel with normal angiographic appearance Ramus is a large caliber vessel with normal angiographic appearance Left circumflex is a moderate caliber vessel with normal angiographic appearance RCA is a large caliber tortuous dominant vessel with a proximal 70% and distal 100% occlusion. Interventional technique: Complex PCI of the RCA Heparin and tirofiban were used for anticoagulation. Through a 6 Bangladeshi JR4 guide catheter a pro-water wire was advanced to the distal RCA but could not traverse the occlusion. Next a Choice PT wire was used to cross the occlusion. Balloon angioplasty was performed with a 2.5 x 15 mm balloon. The lesion was then stented with a 3.5 x 18 mm resolute drug-eluting stent with the help of a guide liner. Despite multiple attempts we were unable to pass a noncompliant balloon to the stented due to significant tortuosity in the proximal aspect of the vessel. During manipulation wire access was lost. Therefore, the JR4 guide was exchanged for a AL-1 guide catheter. This provided better support. The distal RCA was then recrossed with a pro-water wire. Balloon angioplasty was performed with a 3.75 mm noncompliant balloon of the distal RCA stent. Attention was then turned to the proximal RCA. Aspiration thrombectomy was attempted as it was felt that this may be thrombus related to guide liner and balloon manipulation and a severely tortuous RCA. This did not significantly improve the proximal stenosis. The proximal stenosis was then treated with a resolute 4.5 x 18 mm drug-eluting stent at nominal pressures. Final angiography demonstrated excellent stent expansion of the proximal distal segments and no evidence of thrombus or guide or wire related complications. The patient received Plavix at case completion. The right radial sheath was removed and a Terumo radial band was applied for hemostasis. ERNESTO Flow ERNESTO Flow (Pre-Intervention): ERNESTO-0 ERNESTO-3 Conclusion 1. Two-vessel coronary artery disease 2. Successful complex PCI of the RCA with implantation of a Resolute 3.5 x 18 m m distal RCA stent, and a proximal Resolute 4.5 x 18 mm stent. Recommendations ASA 81mg daily Plavix 75mg daily High dose statin therapy Monitor for increase risk of thrombosis given recent COVID infection. Signed by : Rashel Hyde, Electronically Approved : 09/21/2019 07:18:15 DICTATED and SIGNED BY: RASHEL HYDE MD DATE: 09/20/191714 Laboratory Tests Test 09/20/19 10:30 09/20/19 11:17 09/20/19 11:30 09/20/19 16:03 SARS-CoV-2 Antigen (Rapid) Negative (NEGATIVE) Glucose (Fingerstick) 221 mg/dL (70-99) Troponin I Quantitative 18.060 ng/mL (0.000-0.055) Activated Clotting Time 247 sec (92-181) Test 09/20/19 18:09 09/21/19 03:30 09/21/19 07:21 Glucose (Fingerstick) 181 mg/dL (70-99) 256 mg/dL (70-99) White Blood Count 9.0 x10^3/uL (4.0-11.0) Red Blood Count 4.63 x10^6/uL (4.30-5.70) Hemoglobin 12.9 g/dL (13.0-17.5) Hematocrit 38.9 % (39.0-53.0) Mean Corpuscular Volume 84 fL (79-100) Mean Corpuscular Hemoglobin 28 pg (25-35) Mean Corpuscular Hemoglobin Concent 33 g/dL (31-37) Red Cell Distribution Width 15.1 % (11.5-14.5) Platelet Count 160 x10^3/uL (140-400) Triglycerides Level 89 mg/dL (0-150) Cholesterol Level 238 mg/dL (0-200) LDL Cholesterol, Calculated 168 mg/dL (0-100) VLDL Cholesterol, Calculated 18 mg/dL (0-40) Non-HDL Cholesterol Calculated 186 mg/dL (0-129) HDL Cholesterol 52 mg/dL (40-60) Cholesterol/HDL Ratio 4.6 Assessment and Plan Assessmemt and Plan Problems Medical Problems: (1) COVID-19 Status: Acute (2) Dyspnea Status: Acute (3) Elevated troponin Status: Acute Comment Review of Relevant I have reviewed the following items vernon (where applicable) has been applied. Labs Laboratory Tests Test 09/20/19 05:00 09/20/19 05:30 09/20/19 08:45 09/20/19 10:30 White Blood Count 7.3 x10^3/uL (4.0-11.0) Red Blood Count 5.58 x10^6/uL (4.30-5.70) Hemoglobin 15.4 g/dL (13.0-17.5) Hematocrit 46.0 % (39.0-53.0) Mean Corpuscular Volume 83 fL (79-100) Mean Corpuscular Hemoglobin 28 pg (25-35) Mean Corpuscular Hemoglobin Concent 33 g/dL (31-37) Red Cell Distribution Width 15.0 % (11.5-14.5) Platelet Count 173 x10^3/uL (140-400) Neutrophils (%) (Auto) 67 % (31-73) Lymphocytes (%) (Auto) 25 % (24-48) Monocytes (%) (Auto) 7 % (0-9) Eosinophils (%) (Auto) 1 % (0-3) Basophils (%) (Auto) 1 % (0-3) Neutrophils # (Auto) 4.9 x10^3/uL (1.8-7.7) Lymphocytes # (Auto) 1.8 x10^3/uL (1.0-4.8) Monocytes # (Auto) 0.5 x10^3/uL (0.0-1.1) Eosinophils # (Auto) 0.0 x10^3/uL (0.0-0.7) Basophils # (Auto) 0.1 x10^3/uL (0.0-0.2) Prothrombin Time 12.5 SEC (11.7-14.0) Prothromb Time International Ratio 1.0 (0.8-1.1) Activated Partial Thromboplast Time 24 SEC (24-38) Sodium Level 138 mmol/L (136-145) Potassium Level 4.0 mmol/L (3.5-5.1) Chloride Level 100 mmol/L (98-107) Carbon Dioxide Level 26 mmol/L (21-32) Anion Gap 12 (6-14) Blood Urea Nitrogen 15 mg/dL (8-26) Creatinine 1.1 mg/dL (0.7-1.3) Estimated GFR (Cockcroft-Gault) 81.8 BUN/Creatinine Ratio 14 (6-20) Glucose Level 241 mg/dL (70-99) Lactic Acid Level 2.0 mmol/L (0.4-2.0) Calcium Level 9.6 mg/dL (8.5-10.1) Magnesium Level 2.0 mg/dL (1.8-2.4) Ferritin 219 ng/mL (26-388) Total Bilirubin 0.5 mg/dL (0.2-1.0) Aspartate Amino Transf (AST/SGOT) 38 U/L (15-37) Alanine Aminotransferase (ALT/SGPT) 26 U/L (16-63) Alkaline Phosphatase 178 U/L (46-116) Lactate Dehydrogenase 252 U/L (85-227) Creatine Kinase 138 U/L (39-308) Creatine Kinase MB (Mass) 2.3 ng/mL (0.0-3.6) Creatine Kinase MB Relative Index 1.7 % (0-4) Troponin I Quantitative 0.197 ng/mL (0.000-0.055) 4.313 ng/mL (0.000-0.055) BV-Yql-K-Type Natriuretic Peptide 147 pg/mL (0-124) Total Protein 7.9 g/dL (6.4-8.2) Albumin 4.1 g/dL (3.4-5.0) Albumin/Globulin Ratio 1.1 (1.0-1.7) Lipase 154 U/L (73-393) Urine Collection Type Unknown Urine Color Yellow Urine Clarity Clear Urine pH 5.5 (<5.0-8.0) Urine Specific [place] 1.015 (1.000-1.030) Urine Protein 100 mg/dL (NEG-TRACE) Urine Glucose (UA) 100 mg/dL (NEG) Urine Ketones (Stick) 15 mg/dL (NEG) Urine Blood Trace (NEG) Urine Nitrite Negative (NEG) Urine Bilirubin Negative (NEG) Urine Urobilinogen Dipstick 1.0 mg/dL (0.2 mg/dL) Urine Leukocyte Esterase Negative (NEG) Urine RBC Occ /HPF (0-2) Urine WBC 1-4 /HPF (0-4) Urine Squamous Epithelial Cells Mod /LPF Urine Bacteria Few /HPF (0-FEW) Urine Hyaline Casts Few /HPF Urine Mucus Mod /LPF Thyroid Stimulating Hormone (TSH) 1.522 uIU/mL (0.358-3.74) SARS-CoV-2 Antigen (Rapid) Negative (NEGATIVE) Test 09/20/19 11:17 09/20/19 11:30 09/20/19 16:03 09/20/19 18:09 Glucose (Fingerstick) 221 mg/dL (70-99) 181 mg/dL (70-99) Troponin I Quantitative 18.060 ng/mL (0.000-0.055) Activated Clotting Time 247 sec (92-181) Test 09/21/19 03:30 09/21/19 07:21 White Blood Count 9.0 x10^3/uL (4.0-11.0) Red Blood Count 4.63 x10^6/uL (4.30-5.70) Hemoglobin 12.9 g/dL (13.0-17.5) Hematocrit 38.9 % (39.0-53.0) Mean Corpuscular Volume 84 fL (79-100) Mean Corpuscular Hemoglobin 28 pg (25-35) Mean Corpuscular Hemoglobin Concent 33 g/dL (31-37) Red Cell Distribution Width 15.1 % (11.5-14.5) Platelet Count 160 x10^3/uL (140-400) Triglycerides Level 89 mg/dL (0-150) Cholesterol Level 238 mg/dL (0-200) LDL Cholesterol, Calculated 168 mg/dL (0-100) VLDL Cholesterol, Calculated 18 mg/dL (0-40) Non-HDL Cholesterol Calculated 186 mg/dL (0-129) HDL Cholesterol 52 mg/dL (40-60) Cholesterol/HDL Ratio 4.6 Glucose (Fingerstick) 256 mg/dL (70-99) Laboratory Tests Test 09/20/19 10:30 09/20/19 11:17 09/20/19 11:30 09/20/19 16:03 SARS-CoV-2 Antigen (Rapid) Negative (NEGATIVE) Glucose (Fingerstick) 221 mg/dL (70-99) Troponin I Quantitative 18.060 ng/mL (0.000-0.055) Activated Clotting Time 247 sec (92-181) Test 09/20/19 18:09 09/21/19 03:30 09/21/19 07:21 Glucose (Fingerstick) 181 mg/dL (70-99) 256 mg/dL (70-99) White Blood Count 9.0 x10^3/uL (4.0-11.0) Red Blood Count 4.63 x10^6/uL (4.30-5.70) Hemoglobin 12.9 g/dL (13.0-17.5) Hematocrit 38.9 % (39.0-53.0) Mean Corpuscular Volume 84 fL (79-100) Mean Corpuscular Hemoglobin 28 pg (25-35) Mean Corpuscular Hemoglobin Concent 33 g/dL (31-37) Red Cell Distribution Width 15.1 % (11.5-14.5) Platelet Count 160 x10^3/uL (140-400) Triglycerides Level 89 mg/dL (0-150) Cholesterol Level 238 mg/dL (0-200) LDL Cholesterol, Calculated 168 mg/dL (0-100) VLDL Cholesterol, Calculated 18 mg/dL (0-40) Non-HDL Cholesterol Calculated 186 mg/dL (0-129) HDL Cholesterol 52 mg/dL (40-60) Cholesterol/HDL Ratio 4.6 Medications Current Medications Multi-Ingredient Mouthwash/Gargle (Gi Cocktail) 20 ml 1X ONCE PO Last administered on 09/20/19at 05:15; Start 09/20/19 at 04:45; Stop 09/20/19 at 05:18; Status DC Aspirin (Lainey Aspirin) 325 mg 1X ONCE PO Last administered on 09/20/19at 05:23; Start 09/20/19 at 05:30; Stop 09/20/19 at 05:31; Status DC Aspirin (Lainey Aspirin) 325 mg STK-MED ONCE .ROUTE ; Start 09/20/19 at 05:18; Stop 09/20/19 at 05:18; Status DC Ondansetron HCl (Zofran) 4 mg STK-MED ONCE .ROUTE ; Start 09/20/19 at 05:22; Stop 09/20/19 at 05:23; Status DC Ondansetron HCl (Zofran Odt) 4 mg STK-MED ONCE .ROUTE ; Start 09/20/19 at 05:25; Stop 09/20/19 at 05:26; Status DC Ondansetron HCl (Zofran) 4 mg PRN Q8HRS PRN IV NAUSEA/VOMITING 1ST CHOICE Last administered on 09/20/19at 11:28; Start 09/20/19 at 05:45; Stop 09/20/19 at 13: 58; Status DC Fentanyl Citrate (Fentanyl 2ml Vial) 50 mcg PRN Q2HRS PRN IV SEVERE PAIN 7-10; Start 09/20/19 at 05:45; Stop 09/21/19 at 05:44; Status DC Insulin Human Lispro (HumaLOG) 0-5 UNITS TIDWMEALS SQ Last administered on 09/21/19 08:37; Start 09/20/19 at 08:00 Dextrose (Dextrose 50%-Water Syringe) 12.5 gm PRN Q15MIN PRN IV SEE COMMENTS; Start 09/20/19 at 05:45 Heparin Sodium/ Dextrose 250 ml @ 10 mls/hr CONT PRN IV PER PROTOCOL Last administered on 09/20/19at 11:10; Start 09/20/19 at 10:30 Heparin Sodium (Porcine) (Heparin Sodium) 3,700 unit PRN Q6HRS PRN IV FOR UFH LEVEL LESS THAN 0.2 Last administered on 09/20/19 11:32; Start 09/20/19 at 10:30 Morphine Sulfate (Morphine Sulfate) 2 mg PRN Q2HR PRN IV SEVERE PAIN 7-10 Last administered on 09/21/19 08:38; Start 09/20/19 at 10:30 Aspirin (Ecotrin) 81 mg DAILYWBKFT PO Last administered on 09/21/19 08:00; Start 09/20/19 at 12:00 Metoprolol Tartrate (Lopressor) 25 mg BID PO Last administered on 09/20/19at 20:43; Start 09/20/19 at 12:00 Lisinopril (Prinivil) 5 mg DAILY PO Last administered on 8/13/20at 14:29; Start 09/20/19 at 12:00 Sodium Chloride (Normal Saline Flush) 3 ml QSHIFT PRN IV AFTER MEDS AND BLOOD DRAWS; Start 09/20/19 at 13:45 Ondansetron HCl (Zofran) 4 mg PRN Q4HRS PRN IV NAUSEA/VOMITING Last administered on 09/20/19at 11:27; Start 09/20/19 at 13:45 Acetaminophen (Tylenol) 650 mg PRN Q4HRS PRN PO TEMP OVER 100.4F OR MILD PAIN; Start 09/20/19 at 13:45 Al Hydroxide/Mg Hydroxide (Mylanta Plus Xs) 30 ml PRN DAILY PRN PO HEARTBURN / GAS; Start 09/20/19 at 13:45 Docusate Sodium (Colace) 100 mg PRN BID PRN PO HARD STOOLS; Start 09/20/19 at 13:45 Albuterol Sulfate (Ventolin Neb Soln) 2.5 mg PRN Q4HRS PRN NEB SHORTNESS OF BREATH; Start 09/20/19 at 13:45 Guaifenesin (Robitussin) 200 mg PRN Q4HRS PRN PO COUGH; Start 09/20/19 at 13:45 Lorazepam (Ativan) 0.5 mg PRN Q4HRS PRN PO ANXIETY / AGITATION Last administered on 09/21/19at 05:54; Start 09/20/19 at 13:45 Hydralazine HCl (Apresoline Inj) 10 mg PRN Q4HRS PRN IVP ELEVATED BP, SEE COMMENTS; Start 09/20/19 at 14:00 Fentanyl Citrate (Fentanyl 2ml Vial) 100 mcg STK-MED ONCE .ROUTE ; Start 09/20/19 at 14:34; Stop 09/20/19 at 14:35; Status DC Midazolam HCl (Versed) 5 mg STK-MED ONCE .ROUTE ; Start 09/20/19 at 14:34; Stop 09/20/19 at 14:35; Status DC Heparin Sodium (Porcine) (Heparin Sodium) 10,000 unit STK-MED ONCE .ROUTE ; Start 09/20/19 at 14:34; Stop 09/20/19 at 14:35; Status DC Verapamil HCl (Verapamil) 5 mg STK-MED ONCE .ROUTE ; Start 09/20/19 at 14:34; Stop 09/20/19 at 14:35; Status DC Iodixanol (Visipaque 320) 100 ml STK-MED ONCE .ROUTE ; Start 09/20/19 at 15:14; Stop 09/20/19 at 15:14; Status DC Lidocaine HCl (Xylocaine-Mpf 1% 2ml Vial) 2 ml STK-MED ONCE .ROUTE ; Start 09/20/19 at 15:14; Stop 09/20/19 at 15:14; Status DC Heparin Sodium/ Sodium Chloride 1,000 ml @ As Directed STK-MED ONCE .ROUTE ; Start 09/20/19 at 15:14; Stop 09/20/19 at 15:15; Status DC Nitroglycerin (Nitroglycerin) 200 mcg 1X ONCE IART Last administered on 09/20/19at 16:41; Start 09/20/19 at 16:00; Stop 09/20/19 at 16:01; Status DC Verapamil HCl (Verapamil) 2.5 mg 1X ONCE IART Last administered on 09/20/19at 16:42; Start 09/20/19 at 16:00; Stop 09/20/19 at 16:01; Status DC Heparin Sodium (Porcine) (Heparin Sodium) 2,500 unit 1X ONCE IART Last administered on 09/20/19at 17:01; Start 09/20/19 at 16:00; Stop 09/20/19 at 16:01; Status DC Heparin Sodium/ Sodium Chloride (HEPARIN for ARTERIAL LINE FLUSH) 1,000 unit 1X ONCE IART Last administered on 09/20/19at 16:55; Start 09/20/19 at 16:00; Stop 09/20/19 at 16:01; Status DC Midazolam HCl (Versed) 5 mg 1X ONCE IV Last administered on 09/20/19at 16:55; Start 09/20/19 at 16:00; Stop 09/20/19 at 16:01; Status DC Fentanyl Citrate (Fentanyl 2ml Vial) 100 mcg 1X ONCE IV Last administered on 09/20/19at 16:56; Start 09/20/19 at 16:00; Stop 09/20/19 at 16:01; Status DC Iodixanol (Visipaque 320) 100 ml 1X ONCE IART Last administered on 09/20/19at 16:56; Start 09/20/19 at 16:00; Stop 09/20/19 at 16:01; Status DC Lidocaine HCl (Xylocaine-Mpf 1% 2ml Vial) 2 ml 1X ONCE INJ Last administered on 09/20/19at 16:41; Start 09/20/19 at 16:00; Stop 09/20/19 at 16:01; Status DC Heparin Sodium (Porcine) (Heparin Sodium) 3,000 unit 1X ONCE IV Last administered on 09/20/19at 17:02; Start 09/20/19 at 16:15; Stop 09/20/19 at 16:16; Status DC Iodixanol (Visipaque 320) 100 ml STK-MED ONCE .ROUTE ; Start 09/20/19 at 16:20; Stop 09/20/19 at 16:20; Status DC Tirofiban/Sodium Chloride 100 ml @ As Directed STK-MED ONCE IV ; Start 09/20/19 at 16:20; Stop 09/20/19 at 16:21; Status DC Tirofiban/Sodium Chloride 100 ml @ 0 mls/hr CONT PRN IV PER PROTOCOL Last administered on 09/21/19at 01:18; Start 09/20/19 at 16:30; Stop 09/21/19 at 10:29 Tirofiban/Sodium Chloride 100 ml @ As Directed STK-MED ONCE IV ; Start 09/20/19 at 16:36; Stop 09/20/19 at 16:36; Status DC Clopidogrel Bisulfate (Plavix) 75 mg STK-MED ONCE .ROUTE ; Start 09/20/19 at 16:46; Stop 09/20/19 at 16:47; Status DC Aspirin (Lainey Aspirin) 325 mg STK-MED ONCE .ROUTE ; Start 09/20/19 at 16:47; Stop 09/20/19 at 16:47; Status DC Clopidogrel Bisulfate (Plavix) 600 mg 1X ONCE PO Last administered on 09/20/19at 17:02; Start 09/20/19 at 17:00; Stop 09/20/19 at 17:01; Status DC Aspirin (Lainey Aspirin) 325 mg 1X ONCE PO Last administered on 09/20/19at 17:02; Start 09/20/19 at 17:00; Stop 09/20/19 at 17:01; Status DC Clopidogrel Bisulfate (Plavix) 75 mg DAILYWBKFT PO Last administered on 09/21/19at 08:00; Start 09/21/19 at 08:00 Active Scripts Active Reported Refresh Optive Eye Drops (Carboxymethylcellulos/Glycerin) 15 Ml Drops 1 Drop EACHEYE QID Lasix (Furosemide) 40 Mg Tablet 1 Tab PO DAILY 30 Days Losartan Potassium 50 Mg Tablet 50 Mg PO DAILY Lantus Solostar (Insulin Glargine,Hum.rec.anlog) 100 Unit/1 Ml Insuln.pen 25 Unit SQ QHS Atorvastatin Calcium 80 Mg Tablet 80 Mg PO QHS Metformin Hcl 500 Mg Tablet 500 Mg PO BIDWMEALS Coreg (Carvedilol) 3.125 Mg Tablet 3.125 Mg PO BIDWMEALS Proair Hfa Inhaler (Albuterol Sulfate) 8.5 Gm Hfa.aer.ad 2 Puff IH PRN Q4-6HRS PRN 21 Days Gabapentin 600 Mg Tablet 600 Mg PO TID Vitamin D3 (Cholecalciferol (Vitamin D3)) 100 Mcg Capsule 200 Mcg PO DAILY Clopidogrel (Clopidogrel Bisulfate) 75 Mg Tablet 1 Tab PO DAILY Aspirin Ec (Aspirin) 81 Mg Tablet.dr 1 Tab PO DAILY Folic Acid 0.8 Mg Capsule 1 Cap PO DAILY 30 Days Benadryl Allergy (Diphenhydramine Hcl) 25 Mg Tablet 1 Tab PO TID PRN PRN 30 Days Triamcinolone Acetonide 0.5% Cream (Triamcinolone Acetonide) 15 Gm Cream..g. 1 Abdoul TP BID Aldactone (Spironolactone) 25 Mg Tablet 1 Tab PO DAILY Viagra (Sildenafil Citrate) 50 Mg Tablet 1 Tab PO UD Nortriptyline Hcl 25 Mg Capsule 1 Cap PO QHS Vitals/I & O Vital Sign - Last 24 Hours 09/20/19 09/20/19 09/20/19 09/20/19 11:00 11:27 11:57 14:29 Temp 97.9 97.9 Pulse 80 71 Resp 18 B/P (MAP) 154/77 (102) 151/82 Pulse Ox 98 98 98 O2 Delivery Room Air Room Air 09/20/19 09/20/19 09/20/19 09/20/19 14:29 15:00 15:03 16:42 Temp 97.9 97.9 Pulse 71 71 72 Resp 18 B/P (MAP) 151/82 177/85 (115) Pulse Ox 98 97 O2 Delivery Room Air 09/20/19 09/20/19 09/20/19 09/20/19 16:56 17:10 17:22 17:26 Pulse 57 48 Resp 15 15 15 Pulse Ox 100 100 100 O2 Delivery Nasal Cannula Nasal Cannula Nasal Cannula Room Air O2 Flow Rate 2.0 2.0 2.0 09/20/19 09/20/19 09/20/19 09/20/19 17:37 17:52 18:07 18:07 O2 Delivery Room Air Room Air Room Air Room Air O2 Flow Rate 2.0 2.0 2.0 2.0 09/20/19 09/20/19 09/20/19 09/20/19 18:37 19:20 20:19 20:43 Temp 96.5 96.5 Pulse 54 54 Resp 20 B/P (MAP) 162/76 (104) 162/76 Pulse Ox 97 O2 Delivery Room Air Room Air Room Air O2 Flow Rate 2.0 2.0 09/20/19 09/20/19 09/20/19 09/21/19 20:53 21:27 23:53 03:32 Temp 98.1 98.1 Pulse 55 62 Resp 21 18 B/P (MAP) 115/60 (78) 110/61 (77) Pulse Ox 94 95 O2 Delivery Room Air Room Air Room Air Room Air 09/21/19 09/21/19 09/21/19 05:54 07:00 08:38 Temp 98.4 98.4 Pulse 60 Resp 18 B/P (MAP) 115/59 (77) Pulse Ox 96 96 O2 Delivery Room Air Room Air Room Air O2 Flow Rate 2.0 Intake and Output 09/20/19 09/20/19 09/21/19 15:00 23:00 07:00 Intake Total 450 ml 640 ml Output Total 500 ml 1500 ml Balance -500 ml 450 ml -860 ml Justicifation of Admission Dx: Justifications for Admission: Justification of Admission Dx: Yes KIAH PALACIOS MD Sep 21, 2019 08:58
[2019-09-21 11:00] VITALS: BP 123/59
[2019-09-21] MEDS ORDERED: ANTI-COAG MONITOR BY PHARMACY. MC PRN (11:30)
[2019-09-21 15:00] VITALS: BP 123/57
--- NOTE | 2019-09-21 15:55 | EKG ---
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
--- NOTE | 2019-09-21 17:18 | NUR ---
SW following. Reviewed chart and discussed with RN. Pt ready for discharge today. PET[facility] ([phone][facility] and confirmed they can take pt back COVID pending. PETER notified RN. Pt to discharge today on room air and oral medications. No further SW needs at this time.
--- NOTE | 2019-09-21 18:42 | NUR ---
Pt had c/o chest pain still occuring this shift. STAT EKG ordered and Dr. Grande notified. Will continue to monitor.
--- NOTE | 2019-09-21 19:35 | NUR ---
Spoke to Dr Grande regarding resuming Lantus this HS for the pt and needing to restart home meds. orders given to resume insulin at hs and other meds will be reviewed tomorrow.
[2019-09-21 19:49] VITALS: BP 111/57
[2019-09-21] MEDS: INSULIN GLARGINE SYRINGE. SQ SCH (21:00)
[2019-09-21 22:55] VITALS: BP 120/60
[2019-09-22 03:49] VITALS: BP 115/58
[2019-09-22 07:35] VITALS: BP 113/58
[2019-09-22] MEDS: ASPIRIN ENTERIC COATED 81 MG TABLET.DR. PO SCH (08:42)
[2019-09-22] MEDS: CLOPIDOGREL BISULFATE 75 MG TABLET PO SCH (08:42)
[2019-09-22] MEDS: METOPROLOL TART IMMED RELEASE 25 MG TABLET. PO SCH ×2 (08:43→21:02)
[2019-09-22] MEDS: LISINOPRIL 5 MG TABLET. PO SCH (08:43)
[2019-09-22] MEDS: INSULIN LISPRO 300 UNITS/3 ML VIAL. SQ SCH ×3 (08:47→18:44)
--- NOTE | 2019-09-22 10:42 | PDOC ---
PROGRESS NOTES Date of Service: DATE: 09/22/19 TIME: 10:41 Chief Complaint Chief Complaint VTE Prophylaxis Ordered VTE Prophylaxis Devices: Yes VTE Pharmacological Prophylaxi: Yes Assessment/Plan Assessment/Plan impression 1. unstable angina 2. NSTEMI; trop highest 4.3 3. CAD s/p PCI/stent x3 at the [place] 4. Accelerated hypertension 5. Hyperlipidemia 6. Diabetes, II 7. H/o Hep C 8. morbid obesity 9. 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 09/19 ASA 81mg daily Plavix 75mg daily High dose statin therapy Monitor for increase risk of thrombosis given recent COVID infection. 39 MIN PT exam, chart review, > 50% of time spent with exam, chart review, pt care coordination Justicifation of Admission Dx: Justicifation of Admission Dx: Justifications for Admission: Justification of Admission Dx: Yes History of Present Illness History of Present Illness Identification/Chief Complaint Chief Complaint 64 year [id number] male presents via EMS with report of midsternal chest pain with associated nausea and shortness of breath x2 days. Reports some leg swelling and calf tenderness. Patient does report being diagnosed with COVID-19 approximately 2 weeks ago. Denies fever or chills. Denies cough. Denies trauma. RAPID COVID-19 HERE NEG 09/19 troponinn elevated overnight Past Medical History Past Medical History Past Medical History Past Medical History: CAD, Diabetes-Type II, High Cholesterol, Hypertension Additional Past Surgical Histo: Cardiac stents, R leg tissue removal, partial toe amputation on left foot Smoking Status: Never Smoker Alcohol Use: None Drug Use: None FHX OBESITY Family History Family History: Hypertension Social History Smoke: <1 pack per day ALCOHOL: occassional Drugs: None APPROVED REPORT Technologist: Marianne Duarte RT (R) Nurse: Moriah Urrutia R.N. Procedure(s) performed: FLUORO TIME: 26.4 MIN DOSE: 516 Gycm2 Moderate Sedation: 98 min Contrast: 269ml LHC, Coronary angiography, Complex PCI of the RCA HISTORY The patient is a 64 year-old male with a history of : coronary artery disease, hypertension, dyslipidemia. INDICATION The indication(s) include : non-STEMI . CSHA Clinical Frailty Scale CSHA Clinical Frailty Scale: Managing Well Heart Failure Heart Failure: Yes If Yes, Newly Diagnosed: Yes If Yes, HF Type: Diastolic If Yes, NYHA Class: Class II PROCEDURE NARRATIVE Clinical information: 64-year-old man presented to the hospital in the setting of a stuttering episodes of chest pain. He has known coronary disease with a prior PCI. His troponin was elevated and he was brought to the catheterization laboratory for further evaluation. Procedure details: After appropriate informed consent the right wrist was prepped and draped in usual sterile fashion. A 6 Nepalese introducer sheath was placed in the right radial artery without any difficulty. Diagnostic angiography of the right and left coronary arteries was performed with a 6 Nepalese TIG catheter. Findings: Left main is a large-caliber vessel with normal angiographic appearance LAD is a moderate caliber vessel with a patent proximal stent. D1 is a small caliber vessel with normal angiographic appearance Ramus is a large caliber vessel with normal angiographic appearance Left circumflex is a moderate caliber vessel with normal angiographic appearance RCA is a large caliber tortuous dominant vessel with a proximal 70% and distal 100% occlusion. Interventional technique: Complex PCI of the RCA Heparin and tirofiban were used for anticoagulation. Through a 6 Nepalese JR4 guide catheter a pro-water wire was advanced to the distal RCA but could not traverse the occlusion. Next a Choice PT wire was used to cross the occlusion. Balloon angioplasty was performed with a 2.5 x 15 mm balloon. The lesion was then stented with a 3.5 x 18 mm resolute drug-eluting stent with the help of a guide liner. Despite multiple attempts we were unable to pass a noncompliant balloon to the stented due to significant tortuosity in the proximal aspect of the vessel. During manipulation wire access was lost. Therefore, the JR4 guide was exchanged for a AL-1 guide catheter. This provided better support. The distal RCA was then recrossed with a pro-water wire. Balloon angioplasty was performed with a 3.75 mm noncompliant balloon of the distal RCA stent. Attention was then turned to the proximal RCA. Aspiration thrombectomy was attempted as it was felt that this may be thrombus related to guide liner and balloon manipulation and a severely tortuous RCA. This did not significantly improve the proximal stenosis. The proximal stenosis was then treated with a resolute 4.5 x 18 mm drug-eluting stent at nominal pressures. Final angiography demonstrated excellent stent expansion of the proximal distal segments and no evidence of thrombus or guide or wire related complications. The patient received Plavix at case completion. The right radial sheath was removed and a Terumo radial band was applied for hemostasis. ERNESTO Flow ERNESTO Flow (Pre-Intervention): ERNESTO-0 ERNESTO-3 Conclusion 1. Two-vessel coronary artery disease 2. Successful complex PCI of the RCA with implantation of a Resolute 3.5 x 18 mm distal RCA stent, and a proximal Resolute 4.5 x 18 mm stent. Recommendations ASA 81mg daily Plavix 75mg daily High dose statin therapy Monitor for increase risk of thrombosis given recent COVID infection. Signed by : Rashel Hyde, Electronically Approved : 09/21/2019 07:18:15 DICTATED and SIGNED BY: RASHEL HYDE MD DATE: 09/20/19 1715 Vitals Vitals Vital Signs Date Time Temp Pulse Resp B/P (MAP) Pulse Ox O2 Delivery O2 Flow Rate FiO2 09/22/19 08:43 68 113/58 09/22/19 07:35 98.9 18 95 Room Air 98.9 09/21/19 20:02 2.0 Physical Exam General: Alert, Oriented X3, Cooperative, No acute distress Heart: Regular rate Abdomen: Soft, No tenderness Extremities: No edema, Normal pulses Skin: No breakdown, No significant lesion Labs LABS Laboratory Tests Test 09/21/19 12:14 09/21/19 16:22 09/21/19 20:48 09/22/19 07:19 Glucose (Fingerstick) 222 mg/dL (70-99) 257 mg/dL (70-99) 243 mg/dL (70-99) 201 mg/dL (70-99) Assessment and Plan Assessmemt and Plan Problems Medical Problems: (1) COVID-19 Status: Acute (2) Dyspnea Status: Acute (3) Elevated troponin Status: Acute Comment Review of Relevant I have reviewed the following items vernon (where applicable) has been applied. Labs Laboratory Tests Test 09/20/19 11:17 09/20/19 11:30 09/20/19 16:03 09/20/19 18:09 Glucose (Fingerstick) 221 mg/dL (70-99) 181 mg/dL (70-99) Troponin I Quantitative 18.060 ng/mL (0.000-0.055) Activated Clotting Time 247 sec (92-181) Test 09/21/19 03:30 09/21/19 07:21 09/21/19 12:14 09/21/19 16:22 White Blood Count 9.0 x10^3/uL (4.0-11.0) Red Blood Count 4.63 x10^6/uL (4.30-5.70) Hemoglobin 12.9 g/dL (13.0-17.5) Hematocrit 38.9 % (39.0-53.0) Mean Corpuscular Volume 84 fL (79-100) Mean Corpuscular Hemoglobin 28 pg (25-35) Mean Corpuscular Hemoglobin Concent 33 g/dL (31-37) Red Cell Distribution Width 15.1 % (11.5-14.5) Platelet Count 160 x10^3/uL (140-400) Triglycerides Level 89 mg/dL (0-150) Cholesterol Level 238 mg/dL (0-200) LDL Cholesterol, Calculated 168 mg/dL (0-100) VLDL Cholesterol, Calculated 18 mg/dL (0-40) Non-HDL Cholesterol Calculated 186 mg/dL (0-129) HDL Cholesterol 52 mg/dL (40-60) Cholesterol/HDL Ratio 4.6 Glucose (Fingerstick) 256 mg/dL (70-99) 222 mg/dL (70-99) 257 mg/dL (70-99) Test 09/21/19 20:48 09/22/19 07:19 Glucose (Fingerstick) 243 mg/dL (70-99) 201 mg/dL (70-99) Laboratory Tests Test 09/21/19 12:14 09/21/19 16:22 09/21/19 20:48 09/22/19 07:19 Glucose (Fingerstick) 222 mg/dL (70-99) 257 mg/dL (70-99) 243 mg/dL (70-99) 201 mg/dL (70-99) Medications Current Medications Multi-Ingredient Mouthwash/Gargle (Gi Cocktail) 20 ml 1X ONCE PO Last admi nistered on 09/20/19at 05:15; Start 09/20/19 at 04:45; Stop 09/20/19 at 05:18; Status DC Aspirin (Lainey Aspirin) 325 mg 1X ONCE PO Last administered on 09/20/19at 05:23; Start 09/20/19 at 05:30; Stop 09/20/19 at 05:31; Status DC Aspirin (Lainey Aspirin) 325 mg STK-MED ONCE .ROUTE ; Start 09/20/19 at 05:18; Stop 09/20/19 at 05:18; Status DC Ondansetron HCl (Zofran) 4 mg STK-MED ONCE .ROUTE ; Start 09/20/19 at 05:22; Stop 09/20/19 at 05:23; Status DC Ondansetron HCl (Zofran Odt) 4 mg STK-MED ONCE .ROUTE ; Start 09/20/19 at 05:25; Stop 09/20/19 at 05:26; Status DC Ondansetron HCl (Zofran) 4 mg PRN Q8HRS PRN IV NAUSEA/VOMITING 1ST CHOICE Last administered on 09/20/19at 11:28; Start 09/20/19 at 05:45; Stop 09/20/19 at 13:58; Status DC Fentanyl Citrate (Fentanyl 2ml Vial) 50 mcg PRN Q2HRS PRN IV SEVERE PAIN 7-10; Start 09/20/19 at 05:45; Stop 09/21/19 at 05:44; Status DC Insulin Human Lispro (HumaLOG) 0-5 UNITS TIDWMEALS SQ Last administered on 09/22/19at 08:47; Start 09/20/19 at 08:00 Dextrose (Dextrose 50%-Water Syringe) 12.5 gm PRN Q15MIN PRN IV SEE COMMENTS; Start 09/20/19 at 05:45 Heparin Sodium/ Dextrose 250 ml @ 10 mls/hr CONT PRN IV PER PROTOCOL Last administered on 09/20/19at 11:10; Start 09/20/19 at 10:30; Stop 09/21/19 at 15:31; Status DC Heparin Sodium (Porcine) (Heparin Sodium) 3,700 unit PRN Q6HRS PRN IV FOR UFH LEVEL LESS THAN 0.2 Last administered on 09/20/19 11:32; Start 09/20/19 at 10:30; Stop 09/21/19 at 15:31; Status DC Morphine Sulfate (Morphine Sulfate) 2 mg PRN Q2HR PRN IV SEVERE PAIN 7-10 Last administered on 09/21/19 21:28; Start 09/20/19 at 10:30 Aspirin (Ecotrin) 81 mg DAILYWBKFT PO Last administered on 09/22/19 08:42; Start 09/20/19 at 12:00 Metoprolol Tartrate (Lopressor) 25 mg BID PO Last administered on 09/22/19 08:43; Start 09/20/19 at 12:00 Lisinopril (Prinivil) 5 mg DAILY PO Last administered on 09/21/19 08:07; Start 09/20/19 at 12:00 Sodium Chloride (Normal Saline Flush) 3 ml QSHIFT PRN IV AFTER MEDS AND BLOOD DRAWS; Start 09/20/19 at 13:45 Ondansetron HCl (Zofran) 4 mg PRN Q4HRS PRN IV NAUSEA/VOMITING Last administered on 09/20/19 11:27; Start 09/20/19 at 13:45 Acetaminophen (Tylenol) 650 mg PRN Q4HRS PRN PO TEMP OVER 100.4F OR MILD PAIN; Start 09/20/19 at 13:45 Al Hydroxide/Mg Hydroxide (Mylanta Plus Xs) 30 ml PRN DAILY PRN PO HEARTBURN / GAS; Start 09/20/19 at 13:45 Docusate Sodium (Colace) 100 mg PRN BID PRN PO HARD STOOLS Last administered on 09/22/19at 08:42; Start 09/20/19 at 13:45 Albuterol Sulfate (Ventolin Neb Soln) 2.5 mg PRN Q4HRS PRN NEB SHORTNESS OF BREATH; Start 09/20/19 at 13:45 Guaifenesin (Robitussin) 200 mg PRN Q4HRS PRN PO COUGH; Start 09/20/19 at 13:45 Lorazepam (Ativan) 0.5 mg PRN Q4HRS PRN PO ANXIETY / AGITATION Last administered on 09/21/19 05:54; Start 09/20/19 at 13:45 Hydralazine HCl (Apresoline Inj) 10 mg PRN Q4HRS PRN IVP ELEVATED BP, SEE COMMENTS; Start 09/20/19 at 14:00 Fentanyl Citrate (Fentanyl 2ml Vial) 100 mcg STK-MED ONCE .ROUTE ; Start 09/20/19 at 14:34; Stop 09/20/19 at 14:35; Status DC Midazolam HCl (Versed) 5 mg STK-MED ONCE .ROUTE ; Start 09/20/19 at 14:34; Stop 09/20/19 at 14:35; Status DC Heparin Sodium (Porcine) (Heparin Sodium) 10,000 unit STK-MED ONCE .ROUTE ; Start 09/20/19 at 14:34; Stop 09/20/19 at 14:35; Status DC Verapamil HCl (Verapamil) 5 mg STK-MED ONCE .ROUTE ; Start 09/20/19 at 14:34; Stop 09/20/19 at 14:35; Status DC Iodixanol (Visipaque 320) 100 ml STK-MED ONCE .ROUTE ; Start 09/20/19 at 15:14; Stop 09/20/19 at 15:14; Status DC Lidocaine HCl (Xylocaine-Mpf 1% 2ml Vial) 2 ml STK-MED ONCE .ROUTE ; Start 09/20/19 at 15:14; Stop 09/20/19 at 15:14; Status DC Heparin Sodium/ Sodium Chloride 1,000 ml @ As Directed STK-MED ONCE .ROUTE ; Start 09/20/19 at 15:14; Stop 09/20/19 at 15:15; Status DC Nitroglycerin (Nitroglycerin) 200 mcg 1X ONCE IART Last administered on 09/20/19at 16:41; Start 09/20/19 at 16:00; Stop 09/20/19 at 16:01; Status DC Verapamil HCl (Verapamil) 2.5 mg 1X ONCE IART Last administered on 09/20/19at 16:42; Start 09/20/19 at 16:00; Stop 09/20/19 at 16:01; Status DC Heparin Sodium (Porcine) (Heparin Sodium) 2,500 unit 1X ONCE IART Last administered on 09/20/19at 17:01; Start 09/20/19 at 16:00; Stop 09/20/19 at 16:01; Status DC Heparin Sodium/ Sodium Chloride (HEPARIN for ARTERIAL LINE FLUSH) 1,000 unit 1X ONCE IART Last administered on 09/20/19at 16:55; Start 09/20/19 at 16:00; Stop 09/20/19 at 16:01; Status DC Midazolam HCl (Versed) 5 mg 1X ONCE IV Last administered on 09/20/19at 16:55; Start 09/20/19 at 16:00; Stop 09/20/19 at 16:01; Status DC Fentanyl Citrate (Fentanyl 2ml Vial) 100 mcg 1X ONCE IV Last administered on 09/20/19at 16:56; Start 09/20/19 at 16:00; Stop 09/20/19 at 16:01; Status DC Iodixanol (Visipaque 320) 100 ml 1X ONCE IART Last administered on 09/20/19at 16:56; Start 09/20/19 at 16:00; Stop 09/20/19 at 16:01; Status DC Lidocaine HCl (Xylocaine-Mpf 1% 2ml Vial) 2 ml 1X ONCE INJ Last administered on 09/20/19at 16:41; Start 09/20/19 at 16:00; Stop 09/20/19 at 16:01; Status DC Heparin Sodium (Porcine) (Heparin Sodium) 3,000 unit 1X ONCE IV Last administered on 09/20/19at 17:02; Start 09/20/19 at 16:15; Stop 09/20/19 at 16:16; Status DC Iodixanol (Visipaque 320) 100 ml STK-MED ONCE .ROUTE ; Start 09/20/19 at 16:20; Stop 09/20/19 at 16:20; Status DC Tirofiban/Sodium Chloride 100 ml @ As Directed STK-MED ONCE IV ; Start 09/20/19 at 16:20; Stop 09/20/19 at 16:21; Status DC Tirofiban/Sodium Chloride 100 ml @ 0 mls/hr CONT PRN IV PER PROTOCOL Last administered on 09/21/19at 01:18; Start 09/20/19 at 16:30; Stop 09/21/19 at 10:29; Status DC Tirofiban/Sodium Chloride 100 ml @ As Directed STK-MED ONCE IV ; Start 09/20/19 at 16:36; Stop 09/20/19 at 16:36; Status DC Clopidogrel Bisulfate (Plavix) 75 mg STK-MED ONCE .ROUTE ; Start 09/20/19 at 16:46; Stop 09/20/19 at 16:47; Status DC Aspirin (Lainey Aspirin) 325 mg STK-MED ONCE .ROUTE ; Start 09/20/19 at 16:47; Stop 09/20/19 at 16:47; Status DC Clopidogrel Bisulfate (Plavix) 600 mg 1X ONCE PO Last administered on 09/20/19at 17:02; Start 09/20/19 at 17:00; Stop 09/20/19 at 17:01; Status DC Aspirin (Lainey Aspirin) 325 mg 1X ONCE PO Last administered on 09/20/19at 17:02; Start 09/20/19 at 17:00; Stop 09/20/19 at 17:01; Status DC Clopidogrel Bisulfate (Plavix) 75 mg DAILYWBKFT PO Last administered on 09/22/19at 08:42; Start 09/21/19 at 08:00 Info (Anti-Coagulation Monitoring By Pharmacy) 1 each PRN DAILY PRN MC SEE COMMENTS; Start 09/21/19 at 11:30; Stop 09/21/19 at 15:31; Status DC Insulin Glargine (Lantus Syringe) 25 unit QHS SQ Last administered on 09/21/19at 21:00; Start 09/21/19 at 21:00 Active Scripts Active Reported Refresh Optive Eye Drops (Carboxymethylcellulos/Glycerin) 15 Ml Drops 1 Drop EACHEYE QID Lasix (Furosemide) 40 Mg Tablet 1 Tab PO DAILY 30 Days Losartan Potassium 50 Mg Tablet 50 Mg PO DAILY Lantus Solostar (Insulin Glargine,Hum.rec.anlog) 100 Unit/1 Ml Insuln.pen 25 Unit SQ QHS Atorvastatin Calcium 80 Mg Tablet 80 Mg PO QHS Metformin Hcl 500 Mg Tablet 500 Mg PO BIDWMEALS Coreg (Carvedilol) 3.125 Mg Tablet 3.125 Mg PO BIDWMEALS Proair Hfa Inhaler (Albuterol Sulfate) 8.5 Gm Hfa.aer.ad 2 Puff IH PRN Q4-6HRS PRN 21 Days Gabapentin 600 Mg Tablet 600 Mg PO TID Vitamin D3 (Cholecalciferol (Vitamin D3)) 100 Mcg Capsule 200 Mcg PO DAILY Clopidogrel (Clopidogrel Bisulfate) 75 Mg Tablet 1 Tab PO DAILY Aspirin Ec (Aspirin) 81 Mg Tablet.dr 1 Tab PO DAILY Folic Acid 0.8 Mg Capsule 1 Cap PO DAILY 30 Days Benadryl Allergy (Diphenhydramine Hcl) 25 Mg Tablet 1 Tab PO TID PRN PRN 30 Days Triamcinolone Acetonide 0.5% Cream (Triamcinolone Acetonide) 15 Gm Cream..g. 1 Abdoul TP BID Aldactone (Spironolactone) 25 Mg Tablet 1 Tab PO DAILY Viagra (Sildenafil Citrate) 50 Mg Tablet 1 Tab PO UD Nortriptyline Hcl 25 Mg Capsule 1 Cap PO QHS Vitals/I & O Vital Sign - Last 24 Hours 09/21/19 09/21/19 09/21/19 09/21/19 11:00 15:00 15:40 16:10 Temp 98.3 98.1 98.3 98.1 Pulse 71 75 Resp 18 B/P (MAP) 123/59 (80) 123/57 (79) Pulse Ox 94 94 94 94 O2 Delivery Room Air Room Air Room Air Room Air O2 Flow Rate 2.0 2.0 09/21/19 09/21/19 09/21/19 09/21/19 19:49 20:02 21:19 21:28 Temp 99.3 99.3 Pulse 82 82 Resp 16 16 B/P (MAP) 111/57 (75) 111/57 Pulse Ox 94 O2 Delivery Room Air Room Air O2 Flow Rate 2.0 09/21/19 09/21/19 09/22/19 09/22/19 22:00 22:55 03:49 07:35 Temp 98.7 99.1 98.9 98.7 99.1 98.9 Pulse 72 80 68 Resp 20 16 20 18 B/P (MAP) 120/60 (80) 115/58 (77) 113/58 (76) Pulse Ox 95 92 95 O2 Delivery Room Air Room Air Room Air Room Air 09/22/19 09/22/19 08:43 08:43 Pulse 68 68 B/P (MAP) 113/58 113/58 Intake and Output 09/21/19 09/21/19 09/22/19 15:00 23:00 07:00 Intake Total 440 ml 250 ml 150 ml Output Total 700 ml 550 ml Balance -260 ml -300 ml 150 ml Justicifation of Admission Dx: Justifications for Admission: Justification of Admission Dx: Yes FULBRIGHT,KIAH W MD Sep 22, 2019 10:42
[2019-09-22 11:20] VITALS: BP 114/52
--- NOTE | 2019-09-22 14:58 | PDOC ---
CARDIOLOGY PROGRESS NOTE SUBJECTIVE: Denies any chest pain. Feels well overall. OBJECTIVE: Vital Signs/I&O: Vital Signs Date Time Temp Pulse Resp B/P (MAP) Pulse Ox O2 Delivery O2 Flow Rate FiO2 09/22/19 11:20 97.7 64 20 114/52 (72) 97 Room Air 97.7 09/21/19 20:02 2.0 I & O 09/21/19 09/21/19 09/22/19 15:00 23:00 07:00 Intake Total 440 ml 250 ml 150 ml Output Total 700 ml 550 ml Balance -260 ml -300 ml 150 ml Objective: The patient appeared well nourished and normally developed. Head exam is unremarkable. No scleral icterus or corneal arcus noted. Neck is without jugular venous distension, thyromegaly, or carotid bruits. Carotid upstrokes are brisk bilaterally. Lungs are clear to auscultation and percussion. Cardiac exam reveals the PMI to be normally sized and situated. Rhythm is regular. First and second heart sounds normal. No murmurs, rubs or gallops. Abdominal exam reveals normal bowel sounds, no masses, no organomegaly and no aortic enlargement. Extremities are nonedematous and both femoral and pedal pulses are normal. Msk: No traumua Neuro: No focal deficits CURRENT MEDICATIONS: Current Medications Medications (Trade) Dose Ordered Sig/Supriya Route PRN Reason Start Time Stop Time Status Last Admin Dose Admin Insulin Glargine (Lantus Syringe) 25 unit QHS SQ 09/21/19 21:00 09/21/19 21:00 DIAGNOSTIC TESTING: Labs reviewed. LDL 168 Labs: Laboratory Tests Test 09/21/19 16:22 09/21/19 20:48 09/22/19 07:19 09/22/19 11:08 Glucose (Fingerstick) 257 mg/dL (70-99) H 243 mg/dL (70-99) H 201 mg/dL (70-99) H 229 mg/dL (70-99) H ASSESSMENT: 1. Non-STEMI 2. Successful PCI of the RCA PLAN: 1. Continue current medical therapy. Plan for echocardiogram prior to discharge. Justicifation of Admission Dx: Justifications for Admission: Justification of Admission Dx: Yes RASHEL GARCÍA MD Sep 22, 2019 14:58
[2019-09-22 15:34] VITALS: BP 123/58
[2019-09-22 19:59] VITALS: BP 133/67
[2019-09-22] MEDS ORDERED: ATORVASTATIN CALCIUM 40 MG TABLET. PO SCH (21:00)
[2019-09-22] MEDS: MORPHINE SULFATE 2 MG/ML VIAL. IV PRN (21:02)
[2019-09-22] MEDS: INSULIN GLARGINE SYRINGE. SQ SCH (21:09)
[2019-09-22 23:29] VITALS: BP 109/59
[2019-09-23 03:38] VITALS: BP 124/72
[2019-09-23 04:20] LABS: BASO % 1 % (0-3); EOS # 0.2 x10^3/uL (0.0-0.7); EOS % 2 % (0-3); HEMATOCRIT 36.5 % (39.0-53.0); HEMOGLOBIN 12.2 g/dL (13.0-17.5); LYMPH # 2.6 x10^3/uL (1.0-4.8); LYMPH % 36 % (24-48); MEAN CORPUSCULAR HEMOGLOBIN 28 pg (25-35); MEAN CORPUSCULAR HGB CONC 34 g/dL (31-37); MEAN CORPUSCULAR VOLUME 82 fL (79-100); MONO # 0.9 x10^3/uL (0.0-1.1); MONO % 12 % (0-9); NEUT # 3.7 x10^3/uL (1.8-7.7); NEUT % 50 % (31-73); PLATELET COUNT 143 x10^3/uL (140-400); RED BLOOD COUNT 4.43 x10^6/uL (4.30-5.70); RED CELL DISTRIBUTION WIDTH 14.7 % (11.5-14.5); WHITE BLOOD COUNT 7.4 x10^3/uL (4.0-11.0)
[2019-09-23 05:22] LABS: ALBUMIN 2.5 g/dL (3.4-5.0); ALBUMIN/GLOBULIN RATIO 0.7 (1.0-1.7); CALCIUM 8.1 mg/dL (8.5-10.1); CREATININE 1.1 mg/dL (0.7-1.3); GFR 81.8; POTASSIUM 3.8 mmol/L (3.5-5.1); TOTAL BILIRUBIN 0.9 mg/dL (0.2-1.0); TOTAL PROTEIN 6.2 g/dL (6.4-8.2)
[2019-09-23 07:25] VITALS: BP 109/65
[2019-09-23] MEDS: INSULIN LISPRO 300 UNITS/3 ML VIAL. SQ SCH ×3 (08:00→16:55)
[2019-09-23] MEDS: CLOPIDOGREL BISULFATE 75 MG TABLET PO SCH (08:12)
[2019-09-23] MEDS: ASPIRIN ENTERIC COATED 81 MG TABLET.DR. PO SCH (08:12)
[2019-09-23] MEDS: LISINOPRIL 5 MG TABLET. PO SCH (08:13)
[2019-09-23] MEDS: METOPROLOL TART IMMED RELEASE 25 MG TABLET. PO SCH (08:13)
[2019-09-23 11:13] VITALS: BP 115/71
[2019-09-23] MEDS: MORPHINE SULFATE 2 MG/ML VIAL. IV PRN (11:16)
--- NOTE | 2019-09-23 11:40 | PDOC ---
PROGRESS NOTES Date of Service: DATE: 09/23/19 TIME: 11:40 Chief Complaint Chief Complaint VTE Prophylaxis Ordered VTE Prophylaxis Devices: Yes VTE Pharmacological Prophylaxi: Yes DISCHARGE DX Assessment/Plan impression 1. unstable angina 2. NSTEMI; trop highest 4.3 3. CAD s/p PCI/stent x3 at the [place] 4. Accelerated hypertension 5. Hyperlipidemia 6. Diabetes, II 7. H/o Hep C 8. morbid obesity 9. 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 09/19 ASA 81mg daily Plavix 75mg daily High dose statin therapy Continue current medical therapy including aspirin, Plavix, beta-ludmila, and st atin. Monitor for increase risk of thrombosis given recent COVID infection. ok to d/c 09/22 referred to [facility] 39 MIN PT exam, chart review, > 50% of time spent with exam, chart review, pt care coordination Justicifation of Admission Dx: Justicifation of Admission Dx: Justifications for Admission: Justification of Admission Dx: Yes History of Present Illness History of Present Illness Identification/Chief Complaint Chief Complaint 64 year [id number] male presents via EMS with report of midsternal chest pain with associated nausea and shortness of breath x2 days. Reports some leg swelling and calf tenderness. Patient does report being diagnosed with COVID-19 approximately 2 weeks ago. Denies fever or chills. Denies cough. Denies trauma. RAPID COVID-19 HERE NEG 09/19 troponinn elevated overnight Past Medical History Past Medical History Past Medical History Past Medical History: CAD, Diabetes-Type II, High Cholesterol, Hypertension Additional Past Surgical Histo: Cardiac stents, R leg tissue removal, partial toe amputation on left foot Smoking Status: Never Smoker Alcohol Use: None Drug Use: None FHX OBESITY Family History Family History: Hypertension Social History Smoke: <1 pack per day ALCOHOL: occassional Drugs: None APPROVED REPORT Technologist: Marianne Duarte, RT (R) Nurse: Moriah Urrutia R.N. Procedure(s) performed: FLUORO TIME: 26.4 MIN DOSE: 516 Gycm2 Moderate Sedation: 98 min Contrast: 269ml LHC, Coronary angiography, Complex PCI of the RCA HISTORY The patient is a 64 year-old male with a history of : coronary artery disease, hypertension, dyslipidemia. INDICATION The indication(s) include : non-STEMI . [facility] Clinical Frailty Scale [facility] Clinical Frailty Scale: Managing Well Heart Failure Heart Failure: Yes If Yes, Newly Diagnosed: Yes If Yes, HF Type: Diastolic If Yes, NYHA Class: Class II PROCEDURE NARRATIVE Clinical information: 64-year-old man presented to the hospital in the setting of a stuttering episodes of chest pain. He has known coronary disease with a prior PCI. His troponin was elevated and he was brought to the catheterization laboratory for further evaluation. Procedure details: After appropriate informed consent the right wrist was prepped and draped in usual sterile fashion. A 6 Greek introducer sheath was placed in the right radial artery without any difficulty. Diagnostic angiography of the right and left coronary arteries was performed with a 6 Greek TIG catheter. Findings: Left main is a large-caliber vessel with normal angiographic appearance LAD is a moderate caliber vessel with a patent proximal stent. D1 is a small caliber vessel with normal angiographic appearance Ramus is a large caliber vessel with normal angiographic appearance Left circumflex is a moderate caliber vessel with normal angiographic appearance RCA is a large caliber tortuous dominant vessel with a proximal 70% and distal 100% occlusion. Interventional technique: Complex PCI of the RCA Heparin and tirofiban were used for anticoagulation. Through a 6 Greek JR4 guide catheter a pro-water wire was advanced to the distal RCA but could not traverse the occlusion. Next a Choice PT wire was used to cross the occlusion. Balloon angioplasty was performed with a 2.5 x 15 mm balloon. The lesion was then stented with a 3.5 x 18 mm resolute drug-eluting stent with the help of a guide liner. Despite multiple attempts we were unable to pass a noncompliant balloon to the stented due to significant tortuosity in the proximal aspect of the vessel. During manipulation wire access was lost. Therefore, the JR4 guide was exchanged for a AL-1 guide catheter. This provided better support. The distal RCA was then recrossed with a pro-water wire. Balloon angioplasty was performed with a 3.75 mm noncompliant balloon of the distal RCA stent. Attention was then turned to the proximal RCA. Aspiration thrombectomy was attempted as it was felt that this may be thrombus related to guide liner and balloon manipulation and a severely tortuous RCA. This did not significantly improve the proximal stenosis. The proximal stenosis was then treated with a r esolute 4.5 x 18 mm drug-eluting stent at nominal pressures. Final angiography demonstrated excellent stent expansion of the proximal distal segments and no evidence of thrombus or guide or wire related complications. The patient received Plavix at case completion. The right radial sheath was removed and a Terumo radial band was applied for hemostasis. ERNESTO Flow ERNESTO Flow (Pre-Intervention): ERNESTO-0 ERNESTO-3 Conclusion 1. Two-vessel coronary artery disease 2. Successful complex PCI of the RCA with implantation of a Resolute 3.5 x 18 mm distal RCA stent, and a proximal Resolute 4.5 x 18 mm stent. Recommendations ASA 81mg daily Plavix 75mg daily High dose statin therapy Monitor for increase risk of thrombosis given recent COVID infection. Signed by : Rashel Hyde, Electronically Approved : 09/21/2019 07:18:15 DICTATED and SIGNED BY: RASHEL HYDE MD DATE: 09/20/19 1715 Vitals Vitals Vital Signs Date Time Temp Pulse Resp B/P (MAP) Pulse Ox O2 Delivery O2 Flow Rate FiO2 09/23/19 11:16 97 Room Air 09/23/19 11:13 98.6 62 16 115/71 (86) 98.6 Physical Exam General: Alert, Oriented X3, Cooperative, No acute distress Heart: Regular rate Abdomen: Soft, No tenderness Extremities: No edema, Normal pulses Skin: No breakdown, No significant lesion Labs LABS Laboratory Tests Test 09/22/19 16:29 09/22/19 20:51 09/23/19 04:00 09/23/19 07:34 Glucose (Fingerstick) 216 mg/dL (70-99) 171 mg/dL (70-99) 135 mg/dL (70-99) White Blood Count 7.4 x10^3/uL (4.0-11.0) Red Blood Count 4.43 x10^6/uL (4.30-5.70) Hemoglobin 12.2 g/dL (13.0-17.5) Hematocrit 36.5 % (39.0-53.0) Mean Corpuscular Volume 82 fL (79-100) Mean Corpuscular Hemoglobin 28 pg (25-35) Mean Corpuscular Hemoglobin Concent 34 g/dL (31-37) Red Cell Distribution Width 14.7 % (11.5-14.5) Platelet Count 143 x10^3/uL (140-400) Neutrophils (%) (Auto) 50 % (31-73) Lymphocytes (%) (Auto) 36 % (24-48) Monocytes (%) (Auto) 12 % (0-9) Eosinophils (%) (Auto) 2 % (0-3) Basophils (%) (Auto) 1 % (0-3) Neutrophils # (Auto) 3.7 x10^3/uL (1.8-7.7) Lymphocytes # (Auto) 2.6 x10^3/uL (1.0-4.8) Monocytes # (Auto) 0.9 x10^3/uL (0.0-1.1) Eosinophils # (Auto) 0.2 x10^3/uL (0.0-0.7) Basophils # (Auto) 0.0 x10^3/uL (0.0-0.2) Sodium Level 137 mmol/L (136-145) Potassium Level 3.8 mmol/L (3.5-5.1) Chloride Level 103 mmol/L (98-107) Carbon Dioxide Level 25 mmol/L (21-32) Anion Gap 9 (6-14) Blood Urea Nitrogen 16 mg/dL (8-26) Creatinine 1.1 mg/dL (0.7-1.3) Estimated GFR (Cockcroft-Gault) 81.8 BUN/Creatinine Ratio 15 (6-20) Glucose Level 129 mg/dL (70-99) Calcium Level 8.1 mg/dL (8.5-10.1) Total Bilirubin 0.9 mg/dL (0.2-1.0) Aspartate Amino Transf (AST/SGOT) 141 U/L (15-37) Alanine Aminotransferase (ALT/SGPT) 32 U/L (16-63) Alkaline Phosphatase 118 U/L (46-116) Total Protein 6.2 g/dL (6.4-8.2) Albumin 2.5 g/dL (3.4-5.0) Albumin/Globulin Ratio 0.7 (1.0-1.7) Test 09/23/19 10:59 Glucose (Fingerstick) 208 mg/dL (70-99) Assessment and Plan Assessmemt and Plan Problems Medical Problems: (1) COVID-19 Status: Acute (2) Dyspnea Status: Acute (3) Elevated troponin Status: Acute Comment Review of Relevant I have reviewed the following items vernon (where applicable) has been applied. Labs Laboratory Tests Test 09/21/19 12:14 09/21/19 16:22 09/21/19 20:48 09/22/19 07:19 Glucose (Fingerstick) 222 mg/dL (70-99) 257 mg/dL (70-99) 243 mg/dL (70-99) 201 mg/dL (70-99) Test 09/22/19 11:08 09/22/19 16:29 09/22/19 20:51 09/23/19 04:00 Glucose (Fingerstick) 229 mg/dL (70-99) 216 mg/dL (70-99) 171 mg/dL (70-99) White Blood Count 7.4 x10^3/uL (4.0-11.0) Red Blood Count 4.43 x10^6/uL (4.30-5.70) Hemoglobin 12.2 g/dL (13.0-17.5) Hematocrit 36.5 % (39.0-53.0) Mean Corpuscular Volume 82 fL (79-100) Mean Corpuscular Hemoglobin 28 pg (25-35) Mean Corpuscular Hemoglobin Concent 34 g/dL (31-37) Red Cell Distribution Width 14.7 % (11.5-14.5) Platelet Count 143 x10^3/uL (140-400) Neutrophils (%) (Auto) 50 % (31-73) Lymphocytes (%) (Auto) 36 % (24-48) Monocytes (%) (Auto) 12 % (0-9) Eosinophils (%) (Auto) 2 % (0-3) Basophils (%) (Auto) 1 % (0-3) Neutrophils # (Auto) 3.7 x10^3/uL (1.8-7.7) Lymphocytes # (Auto) 2.6 x10^3/uL (1.0-4.8) Monocytes # (Auto) 0.9 x10^3/uL (0.0-1.1) Eosinophils # (Auto) 0.2 x10^3/uL (0.0-0.7) Basophils # (Auto) 0.0 x10^3/uL (0.0-0.2) Sodium Level 137 mmol/L (136-145) Potassium Level 3.8 mmol/L (3.5-5.1) Chloride Level 103 mmol/L (98-107) Carbon Dioxide Level 25 mmol/L (21-32) Anion Gap 9 (6-14) Blood Urea Nitrogen 16 mg/dL (8-26) Creatinine 1.1 mg/dL (0.7-1.3) Estimated GFR (Cockcroft-Gault) 81.8 BUN/Creatinine Ratio 15 (6-20) Glucose Level 129 mg/dL (70-99) Calcium Level 8.1 mg/dL (8.5-10.1) Total Bilirubin 0.9 mg/dL (0.2-1.0) Aspartate Amino Transf (AST/SGOT) 141 U/L (15-37) Alanine Aminotransferase (ALT/SGPT) 32 U/L (16-63) Alkaline Phosphatase 118 U/L (46-116) Total Protein 6.2 g/dL (6.4-8.2) Albumin 2.5 g/dL (3.4-5.0) Albumin/Globulin Ratio 0.7 (1.0-1.7) Test 09/23/19 07:34 09/23/19 10:59 Glucose (Fingerstick) 135 mg/dL (70-99) 208 mg/dL (70-99) Laboratory Tests Test 09/22/19 16:29 09/22/19 20:51 09/23/19 04:00 09/23/19 07:34 Glucose (Fingerstick) 216 mg/dL (70-99) 171 mg/dL (70-99) 135 mg/dL (70-99) White Blood Count 7.4 x10^3/uL (4.0-11.0) Red Blood Count 4.43 x10^6/uL (4.30-5.70) Hemoglobin 12.2 g/dL (13.0-17.5) Hematocrit 36.5 % (39.0-53.0) Mean Corpuscular Volume 82 fL (79-100) Mean Corpuscular Hemoglobin 28 pg (25-35) Mean Corpuscular Hemoglobin Concent 34 g/dL (31-37) Red Cell Distribution Width 14.7 % (11.5-14.5) Platelet Count 143 x10^3/uL (140-400) Neutrophils (%) (Auto) 50 % (31-73) Lymphocytes (%) (Auto) 36 % (24-48) Monocytes (%) (Auto) 12 % (0-9) Eosinophils (%) (Auto) 2 % (0-3) Basophils (%) (Auto) 1 % (0-3) Neutrophils # (Auto) 3.7 x10^3/uL (1.8-7.7) Lymphocytes # (Auto) 2.6 x10^3/uL (1.0-4.8) Monocytes # (Auto) 0.9 x10^3/uL (0.0-1.1) Eosinophils # (Auto) 0.2 x10^3/uL (0.0-0.7) Basophils # (Auto) 0.0 x10^3/uL (0.0-0.2) Sodium Level 137 mmol/L (136-145) Potassium Level 3.8 mmol/L (3.5-5.1) Chloride Level 103 mmol/L (98-107) Carbon Dioxide Level 25 mmol/L (21-32) Anion Gap 9 (6-14) Blood Urea Nitrogen 16 mg/dL (8-26) Creatinine 1.1 mg/dL (0.7-1.3) Estimated GFR (Cockcroft-Gault) 81.8 BUN/Creatinine Ratio 15 (6-20) Glucose Level 129 mg/dL (70-99) Calcium Level 8.1 mg/dL (8.5-10.1) Total Bilirubin 0.9 mg/dL (0.2-1.0) Aspartate Amino Transf (AST/SGOT) 141 U/L (15-37) Alanine Aminotransferase (ALT/SGPT) 32 U/L (16-63) Alkaline Phosphatase 118 U/L (46-116) Total Protein 6.2 g/dL (6.4-8.2) Albumin 2.5 g/dL (3.4-5.0) Albumin/Globulin Ratio 0.7 (1.0-1.7) Test 09/23/19 10:59 Glucose (Fingerstick) 208 mg/dL (70-99) Medications Current Medications Multi-Ingredient Mouthwash/Gargle (Gi Cocktail) 20 ml 1X ONCE PO Last administered on 09/20/19at 05:15; Start 09/20/19 at 04:45; Stop 09/20/19 at 05:18; Status DC Aspirin (ZANK.mobi Aspirin) 325 mg 1X ONCE PO Last administered on 09/20/19at 05:23; Start 09/20/19 at 05:30; Stop 09/20/19 at 05:31; Status DC Aspirin (Lainey Aspirin) 325 mg STK-MED ONCE .ROUTE ; Start 09/20/19 at 05:18; Stop 09/20/19 at 05:18; Status DC Ondansetron HCl (Zofran) 4 mg STK-MED ONCE .ROUTE ; Start 09/20/19 at 05:22; Stop 09/20/19 at 05:23; Status DC Ondansetron HCl (Zofran Odt) 4 mg STK-MED ONCE .ROUTE ; Start 09/20/19 at 05:25; Stop 09/20/19 at 05:26; Status DC Ondansetron HCl (Zofran) 4 mg PRN Q8HRS PRN IV NAUSEA/VOMITING 1ST CHOICE Last administered on 09/20/19at 11:28; Start 09/20/19 at 05:45; Stop 09/20/19 at 13:58; Status DC Fentanyl Citrate (Fentanyl 2ml Vial) 50 mcg PRN Q2HRS PRN IV SEVERE PAIN 7-10; Start 09/20/19 at 05:45; Stop 09/21/19 at 05:44; Status DC Insulin Human Lispro (HumaLOG) 0-5 UNITS TIDWMEALS SQ Last administered on 09/22/19at 18:44; Start 09/20/19 at 08:00 Dextrose (Dextrose 50%-Water Syringe) 12.5 gm PRN Q15MIN PRN IV SEE COMMENTS; Start 09/20/19 at 05:45 Heparin Sodium/ Dextrose 250 ml @ 10 mls/hr CONT PRN IV PER PROTOCOL Last administered on 09/20/19 11:10; Start 09/20/19 at 10:30; Stop 09/21/19 at 15:31; Status DC Heparin Sodium (Porcine) (Heparin Sodium) 3,700 unit PRN Q6HRS PRN IV FOR UFH LEVEL LESS THAN 0.2 Last administered on 09/20/19at 11:32; Start 09/20/19 at 10:30; Stop 09/21/19 at 15:31; Status DC Morphine Sulfate (Morphine Sulfate) 2 mg PRN Q2HR PRN IV SEVERE PAIN 7-10 Last administered on 09/23/19 11:16; Start 09/20/19 at 10:30 Aspirin (Ecotrin) 81 mg DAILYWBKFT PO Last administered on 09/23/19 08:12; Start 09/20/19 at 12:00 Metoprolol Tartrate (Lopressor) 25 mg BID PO Last administered on 09/23/19 08:13; Start 09/20/19 at 12:00 Lisinopril (Prinivil) 5 mg DAILY PO Last administered on 09/23/19 08:13; Start 09/20/19 at 12:00 Sodium Chloride (Normal Saline Flush) 3 ml QSHIFT PRN IV AFTER MEDS AND BLOOD DRAWS; Start 09/20/19 at 13:45 Ondansetron HCl (Zofran) 4 mg PRN Q4HRS PRN IV NAUSEA/VOMITING Last administered on 09/20/19 11:27; Start 09/20/19 at 13:45 Acetaminophen (Tylenol) 650 mg PRN Q4HRS PRN PO TEMP OVER 100.4F OR MILD PAIN Last administered on 09/22/19 21:01; Start 09/20/19 at 13:45 Al Hydroxide/Mg Hydroxide (Mylanta Plus Xs) 30 ml PRN DAILY PRN PO HEARTBURN / GAS; Start 09/20/19 at 13:45 Docusate Sodium (Colace) 100 mg PRN BID PRN PO HARD STOOLS Last administered on 09/22/19at 08:42; Start 09/20/19 at 13:45 Albuterol Sulfate (Ventolin Neb Soln) 2.5 mg PRN Q4HRS PRN NEB SHORTNESS OF BREATH; Start 09/20/19 at 13:45 Guaifenesin (Robitussin) 200 mg PRN Q4HRS PRN PO COUGH; Start 09/20/19 at 13:45 Lorazepam (Ativan) 0.5 mg PRN Q4HRS PRN PO ANXIETY / AGITATION Last admin istered on 09/21/19at 05:54; Start 09/20/19 at 13:45 Hydralazine HCl (Apresoline Inj) 10 mg PRN Q4HRS PRN IVP ELEVATED BP, SEE C OMMENTS; Start 09/20/19 at 14:00 Fentanyl Citrate (Fentanyl 2ml Vial) 100 mcg STK-MED ONCE .ROUTE ; Start 09/20/19 at 14:34; Stop 09/20/19 at 14:35; Status DC Midazolam HCl (Versed) 5 mg STK-MED ONCE .ROUTE ; Start 09/20/19 at 14:34; Stop 09/20/19 at 14:35; Status DC Heparin Sodium (Porcine) (Heparin Sodium) 10,000 unit STK-MED ONCE .ROUTE ; Start 09/20/19 at 14:34; Stop 09/20/19 at 14:35; Status DC Verapamil HCl (Verapamil) 5 mg STK-MED ONCE .ROUTE ; Start 09/20/19 at 14:34; Stop 09/20/19 at 14:35; Status DC Iodixanol (Visipaque 320) 100 ml STK-MED ONCE .ROUTE ; Start 09/20/19 at 15:14; Stop 09/20/19 at 15:14; Status DC Lidocaine HCl (Xylocaine-Mpf 1% 2ml Vial) 2 ml STK-MED ONCE .ROUTE ; Start 09/20/19 at 15:14; Stop 09/20/19 at 15:14; Status DC Heparin Sodium/ Sodium Chloride 1,000 ml @ As Directed STK-MED ONCE .ROUTE ; Start 09/20/19 at 15:14; Stop 09/20/19 at 15:15; Status DC Nitroglycerin (Nitroglycerin) 200 mcg 1X ONCE IART Last administered on 09/20/19at 16:41; Start 09/20/19 at 16:00; Stop 09/20/19 at 16:01; Status DC Verapamil HCl (Verapamil) 2.5 mg 1X ONCE IART Last administered on 09/20/19at 16:42; Start 09/20/19 at 16:00; Stop 09/20/19 at 16:01; Status DC Heparin Sodium (Porcine) (Heparin Sodium) 2,500 unit 1X ONCE IART Last administered on 09/20/19at 17:01; Start 09/20/19 at 16:00; Stop 09/20/19 at 16:01; Status DC Heparin Sodium/ Sodium Chloride (HEPARIN for ARTERIAL LINE FLUSH) 1,000 unit 1X ONCE IART Last administered on 09/20/19at 16:55; Start 09/20/19 at 16:00; Stop 09/20/19 at 16:01; Status DC Midazolam HCl (Versed) 5 mg 1X ONCE IV Last administered on 09/20/19at 16:55; Start 09/20/19 at 16:00; Stop 09/20/19 at 16:01; Status DC Fentanyl Citrate (Fentanyl 2ml Vial) 100 mcg 1X ONCE IV Last administered on 09/20/19at 16:56; Start 09/20/19 at 16:00; Stop 09/20/19 at 16:01; Status DC Iodixanol (Visipaque 320) 100 ml 1X ONCE IART Last administered on 09/20/19at 16:56; Start 09/20/19 at 16:00; Stop 09/20/19 at 16:01; Status DC Lidocaine HCl (Xylocaine-Mpf 1% 2ml Vial) 2 ml 1X ONCE INJ Last administered on 09/20/19at 16:41; Start 09/20/19 at 16:00; Stop 09/20/19 at 16:01; Status DC Heparin Sodium (Porcine) (Heparin Sodium) 3,000 unit 1X ONCE IV Last administered on 09/20/19at 17:02; Start 09/20/19 at 16:15; Stop 09/20/19 at 16:1 6; Status DC Iodixanol (Visipaque 320) 100 ml STK-MED ONCE .ROUTE ; Start 09/20/19 at 16:20; Stop 09/20/19 at 16:20; Status DC Tirofiban/Sodium Chloride 100 ml @ As Directed STK-MED ONCE IV ; Start 09/20/19 at 16:20; Stop 09/20/19 at 16:21; Status DC Tirofiban/Sodium Chloride 100 ml @ 0 mls/hr CONT PRN IV PER PROTOCOL Last administered on 09/21/19at 01:18; Start 09/20/19 at 16:30; Stop 09/21/19 at 10:29; Status DC Tirofiban/Sodium Chloride 100 ml @ As Directed STK-MED ONCE IV ; Start 09/20/19 at 16:36; Stop 09/20/19 at 16:36; Status DC Clopidogrel Bisulfate (Plavix) 75 mg STK-MED ONCE .ROUTE ; Start 09/20/19 at 16:46; Stop 09/20/19 at 16:47; Status DC Aspirin (Lainey Aspirin) 325 mg STK-MED ONCE .ROUTE ; Start 09/20/19 at 16:47; Stop 09/20/19 at 16:47; Status DC Clopidogrel Bisulfate (Plavix) 600 mg 1X ONCE PO Last administered on 09/20/19at 17:02; Start 09/20/19 at 17:00; Stop 09/20/19 at 17:01; Status DC Aspirin (Lainey Aspirin) 325 mg 1X ONCE PO Last administered on 09/20/19at 17:02; Start 09/20/19 at 17:00; Stop 09/20/19 at 17:01; Status DC Clopidogrel Bisulfate (Plavix) 75 mg DAILYWBKFT PO Last administered on 09/23/19 at 08:12; Start 09/21/19 at 08:00 Info (Anti-Coagulation Monitoring By Pharmacy) 1 each PRN DAILY PRN MC SEE COMMENTS; Start 09/21/19 at 11:30; Stop 09/21/19 at 15:31; Status DC Insulin Glargine (Lantus Syringe) 25 unit QHS SQ Last administered on 09/22/19at 21:09; Start 09/21/19 at 21:00 Atorvastatin Calcium (Lipitor) 40 mg QHS PO Last administered on 09/22/19at 21:01; Start 09/22/19 at 21:00 Active Scripts Active Reported Refresh Optive Eye Drops (Carboxymethylcellulos/Glycerin) 15 Ml Drops 1 Drop EACHEYE QID Lasix (Furosemide) 40 Mg Tablet 1 Tab PO DAILY 30 Days Losartan Potassium 50 Mg Tablet 50 Mg PO DAILY Lantus Solostar (Insulin Glargine,Hum.rec.anlog) 100 Unit/1 Ml Insuln.pen 25 Unit SQ QHS Atorvastatin Calcium 80 Mg Tablet 80 Mg PO QHS Metformin Hcl 500 Mg Tablet 500 Mg PO BIDWMEALS Coreg (Carvedilol) 3.125 Mg Tablet 3.125 Mg PO BIDWMEALS Proair Hfa Inhaler (Albuterol Sulfate) 8.5 Gm Hfa.aer.ad 2 Puff IH PRN Q4-6HRS PRN 21 Days Gabapentin 600 Mg Tablet 600 Mg PO TID Vitamin D3 (Cholecalciferol (Vitamin D3)) 100 Mcg Capsule 200 Mcg PO DAILY Clopidogrel (Clopidogrel Bisulfate) 75 Mg Tablet 1 Tab PO DAILY Aspirin Ec (Aspirin) 81 Mg Tablet.dr 1 Tab PO DAILY Folic Acid 0.8 Mg Capsule 1 Cap PO DAILY 30 Days Benadryl Allergy (Diphenhydramine Hcl) 25 Mg Tablet 1 Tab PO TID PRN PRN 30 Days Triamcinolone Acetonide 0.5% Cream (Triamcinolone Acetonide) 15 Gm Cream..g. 1 Abdoul TP BID Aldactone (Spironolactone) 25 Mg Tablet 1 Tab PO DAILY Viagra (Sildenafil Citrate) 50 Mg Tablet 1 Tab PO UD Nortriptyline Hcl 25 Mg Capsule 1 Cap PO QHS Vitals/I & O Vital Sign - Last 24 Hours 09/22/19 09/22/19 09/22/19 09/22/19 15:34 19:59 20:00 21:02 Temp 98.2 98.2 98.2 98.2 Pulse 66 81 Resp 18 18 B/P (MAP) 123/58 (79) 133/67 (89) Pulse Ox 98 96 O2 Delivery Room Air Room Air Room Air Room Air 09/22/19 09/22/19 09/22/19 09/23/19 21:02 21:32 23:29 03:38 Temp 98.6 98.5 98.6 98.5 Pulse 81 70 70 Resp 18 18 B/P (MAP) 133/67 109/59 (76) 124/72 (89) Pulse Ox 97 96 O2 Delivery Room Air Room Air Room Air 09/23/19 09/23/19 09/23/19 09/23/19 07:25 08:13 08:13 08:15 Temp 98.0 98.0 Pulse 73 66 66 Resp 18 B/P (MAP) 109/65 (80) 109/64 109/64 Pulse Ox 98 O2 Delivery Room Air Room Air 09/23/19 09/23/19 11:13 11:16 Temp 98.6 98.6 Pulse 62 Resp 16 B/P (MAP) 115/71 (86) Pulse Ox 97 97 O2 Delivery Room Air Room Air Intake and Output 09/22/19 09/22/19 09/23/19 15:00 23:00 07:00 Intake Total 300 ml 550 ml 210 ml Output Total 750 ml 300 ml 850 ml Balance -450 ml 250 ml -640 ml Justicifation of Admission Dx: Justifications for Admission: Justification of Admission Dx: Yes KIAH PALACIOS MD Sep 23, 2019 11:40
--- NOTE | 2019-09-23 12:24 | PDOC ---
CARDIOLOGY PROGRESS NOTE SUBJECTIVE: Patient complains of atypical chest pain and musculoskeletal back pain. No obvious anginal symptoms and no recurrence of symptoms like he presented with OBJECTIVE: Vital Signs/I&O: Vital Signs Date Time Temp Pulse Resp B/P (MAP) Pulse Ox O2 Delivery O2 Flow Rate FiO2 09/23/19 11:45 97 Room Air 09/23/19 11:13 98.6 62 16 115/71 (86) 98.6 I & O 09/22/19 09/22/19 09/23/19 15:00 23:00 07:00 Intake Total 300 ml 550 ml 210 ml Output Total 750 ml 300 ml 850 ml Balance -450 ml 250 ml -640 ml Objective: Mild musculoskeletal back pain on palpation No edema 2+ radial pulses Alert and oriented x3 CURRENT MEDICATIONS: Current Medications Medications (Trade) Dose Ordered Sig/Supriya Route PRN Reason Start Time Stop Time Status Last Admin Dose Admin Atorvastatin Calcium (Lipitor) 40 mg QHS PO 09/22/19 21:00 09/22/19 21:01 DIAGNOSTIC TESTING: Labs: Laboratory Tests 09/23/19 04:00 Laboratory Tests Test 09/22/19 16:29 09/22/19 20:51 09/23/19 04:00 09/23/19 07:34 Glucose (Fingerstick) 216 mg/dL (70-99) H 171 mg/dL (70-99) H 135 mg/dL (70-99) H White Blood Count 7.4 x10^3/uL (4.0-11.0) Red Blood Count 4.43 x10^6/uL (4.30-5.70) Hemoglobin 12.2 g/dL (13.0-17.5) L Hematocrit 36.5 % (39.0-53.0) L Mean Corpuscular Volume 82 fL (79-100) Mean Corpuscular Hemoglobin 28 pg (25-35) Mean Corpuscular Hemoglobin Concent 34 g/dL (31-37) Red Cell Distribution Width 14.7 % (11.5-14.5) H Platelet Count 143 x10^3/uL (140-400) Neutrophils (%) (Auto) 50 % (31-73) Lymphocytes (%) (Auto) 36 % (24-48) Monocytes (%) (Auto) 12 % (0-9) H Eosinophils (%) (Auto) 2 % (0-3) Basophils (%) (Auto) 1 % (0-3) Neutrophils # (Auto) 3.7 x10^3/uL (1.8-7.7) Lymphocytes # (Auto) 2.6 x10^3/uL (1.0-4.8) Monocytes # (Auto) 0.9 x10^3/uL (0.0-1.1) Eosinophils # (Auto) 0.2 x10^3/uL (0.0-0.7) Basophils # (Auto) 0.0 x10^3/uL (0.0-0.2) Sodium Level 137 mmol/L (136-145) Potassium Level 3.8 mmol/L (3.5-5.1) Chloride Level 103 mmol/L (98-107) Carbon Dioxide Level 25 mmol/L (21-32) Anion Gap 9 (6-14) Blood Urea Nitrogen 16 mg/dL (8-26) Creatinine 1.1 mg/dL (0.7-1.3) Estimated GFR (Cockcroft-Gault) 81.8 BUN/Creatinine Ratio 15 (6-20) Glucose Level 129 mg/dL (70-99) H Calcium Level 8.1 mg/dL (8.5-10.1) L Total Bilirubin 0.9 mg/dL (0.2-1.0) Aspartate Amino Transf (AST/SGOT) 141 U/L (15-37) H Alkaline Phosphatase 118 U/L (46-116) H Total Protein 6.2 g/dL (6.4-8.2) L Albumin 2.5 g/dL (3.4-5.0) L Albumin/Globulin Ratio 0.7 (1.0-1.7) L Test 09/23/19 10:59 Glucose (Fingerstick) 208 mg/dL (70-99) H ASSESSMENT: 1. Two-vessel coronary artery disease status post PCI to the RCA for acute thrombotic RCA occlusion 2. Hypertension 3. Dyslipidemia 4. Morbid obesity PLAN: 1. Continue current medical therapy including aspirin, Plavix, beta-ludmila, and statin. He will be referred to the [place] [facility] facilities. Await echocardiogram. Can be discharged after echocardiogram Justicifation of Admission Dx: Justifications for Admission: Justification of Admission Dx: Yes RASHEL GARCÍA MD Sep 23, 2019 12:24
[2019-09-23] MEDS ORDERED: PERFLUTREN PROTEIN-A MICROSPHR 0.22 MG/ML 3 ML VIAL. IV ONE ×2 (13:10→14:15)
[2019-09-23 15:15] VITALS: BP 125/82
--- NOTE | 2019-09-23 15:38 | PDOC3 ---
Discharge Summary Date of Admission: Sep 20, 2019 Date of Discharge: Sep 23, 2019 Follow-Up: Other (1 WEEK CARDIAC REHAB [facility]) FINAL DIAGNOSIS Problems Medical Problems: (1) COVID-19 Status: Acute (2) Dyspnea Status: Acute (3) Elevated troponin Status: Acute Brief Hospital Course Mr. Moeller is a 64 old [sex] who presented with [STEMI ] CONDITION AT DISCHARGE: Improved Discharge Medications Current Medications Multi-Ingredient Mouthwash/Gargle (Gi Cocktail) 20 ml 1X ONCE PO Last administered on 09/20/19at 05:15; Start 09/20/19 at 04:45; Stop 09/20/19 at 05:18; Status DC Aspirin (Lainey Aspirin) 325 mg 1X ONCE PO Last administered on 09/20/19at 05:23; Start 09/20/19 at 05:30; Stop 09/20/19 at 05:31; Status DC Aspirin (Lainey Aspirin) 325 mg STK-MED ONCE .ROUTE ; Start 09/20/19 at 05:18; Stop 09/20/19 at 05:18; Status DC Ondansetron HCl (Zofran) 4 mg STK-MED ONCE .ROUTE ; Start 09/20/19 at 05:22; Stop 09/20/19 at 05:23; Status DC Ondansetron HCl (Zofran Odt) 4 mg STK-MED ONCE .ROUTE ; Start 09/20/19 at 05:25; Stop 09/20/19 at 05:26; Status DC Ondansetron HCl (Zofran) 4 mg PRN Q8HRS PRN IV NAUSEA/VOMITING 1ST CHOICE Last administered on 09/20/19at 11:28; Start 09/20/19 at 05:45; Stop 09/20/19 at 13:58; Status DC Fentanyl Citrate (Fentanyl 2ml Vial) 50 mcg PRN Q2HRS PRN IV SEVERE PAIN 7-10; Start 09/20/19 at 05:45; Stop 09/21/19 at 05:44; Status DC Insulin Human Lispro (HumaLOG) 0-5 UNITS TIDWMEALS SQ Last administered on 09/23/19at 12:13; Start 09/20/19 at 08:00 Dextrose (Dextrose 50%-Water Syringe) 12.5 gm PRN Q15MIN PRN IV SEE COMMENTS; Start 09/20/19 at 05:45 Heparin Sodium/ Dextrose 250 ml @ 10 mls/hr CONT PRN IV PER PROTOCOL Last administered on 09/20/19at 11:10; Start 09/20/19 at 10:30; Stop 09/21/19 at 15:31; Status DC Heparin Sodium (Porcine) (Heparin Sodium) 3,700 unit PRN Q6HRS PRN IV FOR UFH LEVEL LESS THAN 0.2 Last administered on 09/20/19at 11:32; Start 09/20/19 at 10:30; Stop 09/21/19 at 15:31; Status DC Morphine Sulfate (Morphine Sulfate) 2 mg PRN Q2HR PRN IV SEVERE PAIN 7-10 Last administered on 09/23/19 11:16; Start 09/20/19 at 10:30 Aspirin (Ecotrin) 81 mg DAILYWBKFT PO Last administered on 09/23/19 08:12; Start 09/20/19 at 12:00 Metoprolol Tartrate (Lopressor) 25 mg BID PO Last administered on 09/23/19 08:13; Start 09/20/19 at 12:00 Lisinopril (Prinivil) 5 mg DAILY PO Last administered on 09/23/19 08:13; Start 09/20/19 at 12:00 Sodium Chloride (Normal Saline Flush) 3 ml QSHIFT PRN IV AFTER MEDS AND BLOOD DRAWS; Start 09/20/19 at 13:45 Ondansetron HCl (Zofran) 4 mg PRN Q4HRS PRN IV NAUSEA/VOMITING Last administered on 09/20/19 11:27; Start 09/20/19 at 13:45 Acetaminophen (Tylenol) 650 mg PRN Q4HRS PRN PO TEMP OVER 100.4F OR MILD PAIN Last administered on 09/22/19 21:01; Start 09/20/19 at 13:45 Al Hydroxide/Mg Hydroxide (Mylanta Plus Xs) 30 ml PRN DAILY PRN PO HEARTBURN / GAS; Start 09/20/19 at 13:45 Docusate Sodium (Colace) 100 mg PRN BID PRN PO HARD STOOLS Last administered on 09/22/19at 08:42; Start 09/20/19 at 13:45 Albuterol Sulfate (Ventolin Neb Soln) 2.5 mg PRN Q4HRS PRN NEB SHORTNESS OF BREATH; Start 09/20/19 at 13:45 Guaifenesin (Robitussin) 200 mg PRN Q4HRS PRN PO COUGH; Start 09/20/19 at 13:45 Lorazepam (Ativan) 0.5 mg PRN Q4HRS PRN PO ANXIETY / AGITATION Last administered on 09/21/19at 05:54; Start 09/20/19 at 13:45 Hydralazine HCl (Apresoline Inj) 10 mg PRN Q4HRS PRN IVP ELEVATED BP, SEE COMMENTS; Start 09/20/19 at 14:00 Fentanyl Citrate (Fentanyl 2ml Vial) 100 mcg STK-MED ONCE .ROUTE ; Start 09/20/19 at 14:34; Stop 09/20/19 at 14:35; Status DC Midazolam HCl (Versed) 5 mg STK-MED ONCE .ROUTE ; Start 09/20/19 at 14:34; Stop 09/20/19 at 14:35; Status DC Heparin Sodium (Porcine) (Heparin Sodium) 10,000 unit STK-MED ONCE .ROUTE ; Start 09/20/19 at 14:34; Stop 09/20/19 at 14:35; Status DC Verapamil HCl (Verapamil) 5 mg STK-MED ONCE .ROUTE ; Start 09/20/19 at 14:34; Stop 09/20/19 at 14:35; Status DC Iodixanol (Visipaque 320) 100 ml STK-MED ONCE .ROUTE ; Start 09/20/19 at 15:14; Stop 09/20/19 at 15:14; Status DC Lidocaine HCl (Xylocaine-Mpf 1% 2ml Vial) 2 ml STK-MED ONCE .ROUTE ; Start 09/20/19 at 15:14; Stop 09/20/19 at 15:14; Status DC Heparin Sodium/ Sodium Chloride 1,000 ml @ As Directed STK-MED ONCE .ROUTE ; Start 09/20/19 at 15:14; Stop 09/20/19 at 15:15; Status DC Nitroglycerin (Nitroglycerin) 200 mcg 1X ONCE IART Last administered on 09/20/19at 16:41; Start 09/20/19 at 16:00; Stop 09/20/19 at 16:01; Status DC Verapamil HCl (Verapamil) 2.5 mg 1X ONCE IART Last administered on 09/20/19at 16:42; Start 09/20/19 at 16:00; Stop 09/20/19 at 16:01; Status DC Heparin Sodium (Porcine) (Heparin Sodium) 2,500 unit 1X ONCE IART Last administered on 09/20/19at 17:01; Start 09/20/19 at 16:00; Stop 09/20/19 at 16:01; Status DC Heparin Sodium/ Sodium Chloride (HEPARIN for ARTERIAL LINE FLUSH) 1,000 unit 1X ONCE IART Last administered on 09/20/19at 16:55; Start 09/20/19 at 16:00; Stop 09/20/19 at 16:01; Status DC Midazolam HCl (Versed) 5 mg 1X ONCE IV Last administered on 09/20/19at 16:55; Start 09/20/19 at 16:00; Stop 09/20/19 at 16:01; Status DC Fentanyl Citrate (Fentanyl 2ml Vial) 100 mcg 1X ONCE IV Last administered on 09/20/19at 16:56; Start 09/20/19 at 16:00; Stop 09/20/19 at 16:01; Status DC Iodixanol (Visipaque 320) 100 ml 1X ONCE IART Last administered on 09/20/19at 16:56; Start 09/20/19 at 16:00; Stop 09/20/19 at 16:01; Status DC Lidocaine HCl (Xylocaine-Mpf 1% 2ml Vial) 2 ml 1X ONCE INJ Last administered on 09/20/19at 16:41; Start 09/20/19 at 16:00; Stop 09/20/19 at 16:01; Status DC Heparin Sodium (Porcine) (Heparin Sodium) 3,000 unit 1X ONCE IV Last administered on 09/20/19at 17:02; Start 09/20/19 at 16:15; Stop 09/20/19 at 16:16; Status DC Iodixanol (Visipaque 320) 100 ml STK-MED ONCE .ROUTE ; Start 09/20/19 at 16:20; Stop 09/20/19 at 16:20; Status DC Tirofiban/Sodium Chloride 100 ml @ As Directed STK-MED ONCE IV ; Start 09/20/19 at 16:20; Stop 09/20/19 at 16:21; Status DC Tirofiban/Sodium Chloride 100 ml @ 0 mls/hr CONT PRN IV PER PROTOCOL Last administered on 09/21/19at 01:18; Start 09/20/19 at 16:30; Stop 09/21/19 at 10:29; Status DC Tirofiban/Sodium Chloride 100 ml @ As Directed STK-MED ONCE IV ; Start 09/20/19 at 16:36; Stop 09/20/19 at 16:36; Status DC Clopidogrel Bisulfate (Plavix) 75 mg STK-MED ONCE .ROUTE ; Start 09/20/19 at 16:46; Stop 09/20/19 at 16:47; Status DC Aspirin (Lainey Aspirin) 325 mg STK-MED ONCE .ROUTE ; Start 09/20/19 at 16:47; Stop 09/20/19 at 16:47; Status DC Clopidogrel Bisulfate (Plavix) 600 mg 1X ONCE PO Last administered on 09/19at 17:02; Start 09/20/19 at 17:00; Stop 09/20/19 at 17:01; Status DC Aspirin (Lainey Aspirin) 325 mg 1X ONCE PO Last administered on 09/20/19at 17:02; Start 09/20/19 at 17:00; Stop 09/20/19 at 17:01; Status DC Clopidogrel Bisulfate (Plavix) 75 mg DAILYWBKFT PO Last administered on 09/23/19at 08:12; Start 09/21/19 at 08:00 Info (Anti-Coagulation Monitoring By Pharmacy) 1 each PRN DAILY PRN MC SEE COMMENTS; Start 09/21/19 at 11:30; Stop 09/21/19 at 15:31; Status DC Insulin Glargine (Lantus Syringe) 25 unit QHS SQ Last administered on 09/22/19at 21:09; Start 09/21/19 at 21:00 Atorvastatin Calcium (Lipitor) 40 mg QHS PO Last administered on 09/22/19at 21:01; Start 09/22/19 at 21:00 Perflutren Protein Type A Microsphe (Optison) 0.66 mg STK-MED ONCE IV ; Start 09/23/19 at 13:10; Stop 09/23/19 at 13:10; Status DC Perflutren Protein Type A Microsphe (Optison) 0.66 mg 1X ONCE IV Last administered on 09/23/19at 14:06; Start 09/23/19 at 14:15; Stop 09/23/19 at 14:16; Status DC Active Scripts Active Reported Refresh Optive Eye Drops (Carboxymethylcellulos/Glycerin) 15 Ml Drops 1 Drop EACHEYE QID Lasix (Furosemide) 40 Mg Tablet 1 Tab PO DAILY 30 Days Losartan Potassium 50 Mg Tablet 50 Mg PO DAILY Lantus Solostar (Insulin Glargine,Hum.rec.anlog) 100 Unit/1 Ml Insuln.pen 25 Unit SQ QHS Atorvastatin Calcium 80 Mg Tablet 80 Mg PO QHS Metformin Hcl 500 Mg Tablet 500 Mg PO BIDWMEALS Coreg (Carvedilol) 3.125 Mg Tablet 3.125 Mg PO BIDWMEALS Proair Hfa Inhaler (Albuterol Sulfate) 8.5 Gm Hfa.aer.ad 2 Puff IH PRN Q4-6HRS PRN 21 Days Gabapentin 600 Mg Tablet 600 Mg PO TID Vitamin D3 (Cholecalciferol (Vitamin D3)) 100 Mcg Capsule 200 Mcg PO DAILY Clopidogrel (Clopidogrel Bisulfate) 75 Mg Tablet 1 Tab PO DAILY Aspirin Ec (Aspirin) 81 Mg Tablet.dr 1 Tab PO DAILY Folic Acid 0.8 Mg Capsule 1 Cap PO DAILY 30 Days Benadryl Allergy (Diphenhydramine Hcl) 25 Mg Tablet 1 Tab PO TID PRN PRN 30 Days Triamcinolone Acetonide 0.5% Cream (Triamcinolone Acetonide) 15 Gm Cream..g. 1 Abdoul TP BID Aldactone (Spironolactone) 25 Mg Tablet 1 Tab PO DAILY Viagra (Sildenafil Citrate) 50 Mg Tablet 1 Tab PO UD Nortriptyline Hcl 25 Mg Capsule 1 Cap PO QHS Vital Signs Vital Signs Date Time Temp Pulse Resp B/P (MAP) Pulse Ox O2 Delivery O2 Flow Rate FiO2 09/23/19 11:45 97 Room Air 09/23/19 11:13 98.6 62 16 115/71 (86) 98.6 Labs Laboratory Tests Test 09/21/19 16:22 09/21/19 20:48 09/22/19 07:19 09/22/19 11:08 Glucose (Fingerstick) 257 mg/dL (70-99) 243 mg/dL (70-99) 201 mg/dL (70-99) 229 mg/dL (70-99) Test 09/22/19 16:29 09/22/19 20:51 09/23/19 04:00 09/23/19 07:34 Glucose (Fingerstick) 216 mg/dL (70-99) 171 mg/dL (70-99) 135 mg/dL (70-99) White Blood Count 7.4 x10^3/uL (4.0-11.0) Red Blood Count 4.43 x10^6/uL (4.30-5.70) Hemoglobin 12.2 g/dL (13.0-17.5) Hematocrit 36.5 % (39.0-53.0) Mean Corpuscular Volume 82 fL (79-100) Mean Corpuscular Hemoglobin 28 pg (25-35) Mean Corpuscular Hemoglobin Concent 34 g/dL (31-37) Red Cell Distribution Width 14.7 % (11.5-14.5) Platelet Count 143 x10^3/uL (140-400) Neutrophils (%) (Auto) 50 % (31-73) Lymphocytes (%) (Auto) 36 % (24-48) Monocytes (%) (Auto) 12 % (0-9) Eosinophils (%) (Auto) 2 % (0-3) Basophils (%) (Auto) 1 % (0-3) Neutrophils # (Auto) 3.7 x10^3/uL (1.8-7.7) Lymphocytes # (Auto) 2.6 x10^3/uL (1.0-4.8) Monocytes # (Auto) 0.9 x10^3/uL (0.0-1.1) Eosinophils # (Auto) 0.2 x10^3/uL (0.0-0.7) Basophils # (Auto) 0.0 x10^3/uL (0.0-0.2) Sodium Level 137 mmol/L (136-145) Potassium Level 3.8 mmol/L (3.5-5.1) Chloride Level 103 mmol/L (98-107) Carbon Dioxide Level 25 mmol/L (21-32) Anion Gap 9 (6-14) Blood Urea Nitrogen 16 mg/dL (8-26) Creatinine 1.1 mg/dL (0.7-1.3) Estimated GFR (Cockcroft-Gault) 81.8 BUN/Creatinine Ratio 15 (6-20) Glucose Level 129 mg/dL (70-99) Calcium Level 8.1 mg/dL (8.5-10.1) Total Bilirubin 0.9 mg/dL (0.2-1.0) Aspartate Amino Transf (AST/SGOT) 141 U/L (15-37) Alanine Aminotransferase (ALT/SGPT) 32 U/L (16-63) Alkaline Phosphatase 118 U/L (46-116) Total Protein 6.2 g/dL (6.4-8.2) Albumin 2.5 g/dL (3.4-5.0) Albumin/Globulin Ratio 0.7 (1.0-1.7) Test 09/23/19 10:59 Glucose (Fingerstick) 208 mg/dL (70-99) Laboratory Tests Test 09/22/19 16:29 09/22/19 20:51 09/23/19 04:00 09/23/19 07:34 Glucose (Fingerstick) 216 mg/dL (70-99) 171 mg/dL (70-99) 135 mg/dL (70-99) White Blood Count 7.4 x10^3/uL (4.0-11.0) Red Blood Count 4.43 x10^6/uL (4.30-5.70) Hemoglobin 12.2 g/dL (13.0-17.5) Hematocrit 36.5 % (39.0-53.0) Mean Corpuscular Volume 82 fL (79-100) Mean Corpuscular Hemoglobin 28 pg (25-35) Mean Corpuscular Hemoglobin Concent 34 g/dL (31-37) Red Cell Distribution Width 14.7 % (11.5-14.5) Platelet Count 143 x10^3/uL (140-400) Neutrophils (%) (Auto) 50 % (31-73) Lymphocytes (%) (Auto) 36 % (24-48) Monocytes (%) (Auto) 12 % (0-9) Eosinophils (%) (Auto) 2 % (0-3) Basophils (%) (Auto) 1 % (0-3) Neutrophils # (Auto) 3.7 x10^3/uL (1.8-7.7) Lymphocytes # (Auto) 2.6 x10^3/uL (1.0-4.8) Monocytes # (Auto) 0.9 x10^3/uL (0.0-1.1) Eosinophils # (Auto) 0.2 x10^3/uL (0.0-0.7) Basophils # (Auto) 0.0 x10^3/uL (0.0-0.2) Sodium Level 137 mmol/L (136-145) Potassium Level 3.8 mmol/L (3.5-5.1) Chloride Level 103 mmol/L (98-107) Carbon Dioxide Level 25 mmol/L (21-32) Anion Gap 9 (6-14) Blood Urea Nitrogen 16 mg/dL (8-26) Creatinine 1.1 mg/dL (0.7-1.3) Estimated GFR (Cockcroft-Gault) 81.8 BUN/Creatinine Ratio 15 (6-20) Glucose Level 129 mg/dL (70-99) Calcium Level 8.1 mg/dL (8.5-10.1) Total Bilirubin 0.9 mg/dL (0.2-1.0) Aspartate Amino Transf (AST/SGOT) 141 U/L (15-37) Alanine Aminotransferase (ALT/SGPT) 32 U/L (16-63) Alkaline Phosphatase 118 U/L (46-116) Total Protein 6.2 g/dL (6.4-8.2) Albumin 2.5 g/dL (3.4-5.0) Albumin/Globulin Ratio 0.7 (1.0-1.7) Test 09/23/19 10:59 Glucose (Fingerstick) 208 mg/dL (70-99) Allergies Allergies Coded Allergies Type Severity Reaction Last Updated Verified sulfamethoxazole Allergy Severe 09/20/19 Yes trimethoprim Allergy Severe 09/20/19 Yes Disposition/Orders: D/C to Home Justicifation of Admission Dx: Justifications for Admission: Justification of Admission Dx: Yes KIAH PALACIOS MD Sep 23, 2019 15:38
[2019-09-23] MEDS ORDERED: ATOR40TA59 PO (15:43)
[2019-09-23] MEDS ORDERED: DOCU-153 PO (15:43)
[2019-09-23] MEDS ORDERED: LISI-338 PO (15:43)
[2019-09-23] MEDS ORDERED: ACET325T9 PO (15:43)
[2019-09-23] MEDS ORDERED: METO25TA4 PO (15:43)
[2019-09-23] MEDS ORDERED: GUAI100L12 PO (15:43)
[2019-09-23] MEDS ORDERED: INSU100V35 SQ (15:43)
--- NOTE | 2019-09-23 15:45 | DISCH ---
DISCHARGE INSTRUCTIONS Condition on Discharge Condition on Discharge: Stable Activity After Discharge Activity Instructions for Disc: Activity as tolerated Lifting Instructions after Dis: No heavy lifting, No pulling or pushing Driving Instructions after Dis: Do not drive today Weight Bearing Status after Di: As tolerated Diet after Discharge Diet after Discharge: Cardiac, Diabetic No Calorie Level Liquid Texture: Thin Liquid Checks after Discharge Checks after discharge: Check blood press - daily Contacting the DR. after DC Call your doctor for: If your condition worsens KIAH PALACIOS MD Sep 23, 2019 15:45
--- NOTE | 2019-09-23 17:30 | NUR ---
patients IV removed and tele monitor off. patient stable at time of discharge. discussed discharge paperwork, new medications, follow up, post cath care, and stent card with patient. patient informed to follow up with pcp this week and cardiology in 1-2 weeks. patient given discharge information on smoking cessation and cardiac rehab referral. patient escorted per wheelchair by rn to patients daughters vehicle.
--- NOTE | 2019-09-24 08:29 | CARD ---
MR#: [id number] Date of Study: 09/23/2019 Ordering Physician: IMAN LEE, Referring Physician: IMAN LEE, Tech: Emily Rivas RDCS APPROVED REPORT EXAM: Two-dimensional and M-mode echocardiogram with Doppler and color Doppler. Other Information Quality : Fair INDICATION Chest Pain Non STEMI Echo Enhancing Agent Indication: R/O LV Mass Agent/Amount Used: Optison 2mL 2D DIMENSIONS RVDd3.2 (2.9-3.5cm)Left Atrium(2D)4.7 (1.6-4.0cm) IVSd1.3 (0.7-1.1cm)Aortic Root(2D)3.1 (2.0-3.7cm) LVDd6.0 (3.9-5.9cm)LVOT Diameter2.3 (1.8-2.4cm) PWd1.3 (0.7-1.1cm)LVDs5.4 (2.5-4.0cm) FS (%) 8.9 %SV34.2 ml LVEF(%)19.2 (>50%) Aortic Valve AoV Peak Jorge.97.3cm/sAoV VTI17.5cm AO Peak GR.3.8mmHgLVOT VTI 18.44cm AO Mean GR.2mmHgAVA (VTI)4.30cm2 Mitral Valve MV E Ewmhsmir79.4cm/sMV DECEL [id number] MV A Dveybxgy47.8cm/sE/A Ratio1.6 TDI Lateral E' P. V3.86cm/sMedial E' P. V4.63cm/s E/Lateral E'23.2E/Medial E'19.3 Tricuspid Valve TR P. Ycdfjvxe575rz/sRAP [id number] TR Peak Gr.[id number] Pulmonary Vein S1 Idaqrudt98.2cm/sS2 Tssmibod94.01cm/s D2 Jvbaxdon76.0cm/s LEFT VENTRICLE The Left Ventricle is mildly dilated. There is mild concentric left ventricular hypertrophy. Left saritha tricle systolic function is mildly impaired. The Ejection Fraction is 45%. There is mild hypokinesis in the inferoposterior, lateral and apical medel. Septal motion consistent with conduction abnormalit y. Transmitral Doppler flow pattern is Grade II-pseudonormal filling dynamics. No left ventricle thro mbus noted on this study. RIGHT VENTRICLE The right ventricle is moderately to severely dilated. The right ventricular systolic function is nor mal. ATRIA The left atrium is mildly dilated. The right atrium is mildly dilated. The interatrial septum is inta ct with no evidence for an atrial septal defect or patent foramen ovale as noted on 2-D or Doppler im aging. AORTIC VALVE The aortic valve is calcified but opens well. Doppler and Color Flow revealed no significant aortic r egurgitation. There is no significant aortic valvular stenosis. MITRAL VALVE The mitral valve is calcified but opens well. There is no evidence of mitral valve prolapse. There is no mitral valve stenosis. Doppler and Color-flow revealed trace mitral regurgitation. TRICUSPID VALVE The tricuspid valve is normal in structure and function. Doppler and Color Flow revealed trace tricus pid regurgitation. There is moderate pulmonary hypertension. The PA pressure was estimated at 44 mmHg . There is no tricuspid valve stenosis. PULMONIC VALVE The pulmonary valve is normal in structure and function. Doppler and Color Flow revealed trace to mil d pulmonic valvular regurgitation. There is no pulmonic valvular stenosis. GREAT VESSELS The aortic root is normal in size. The ascending aorta is normal in size. The IVC is dilated and olivier apses <50% with inspiration. PERICARDIAL EFFUSION There is no evidence of significant pericardial effusion. Critical Notification Critical Value: No <Conclusion> Left ventricle systolic function is mildly impaired. The Ejection Fraction is 45%. There is mild hypokinesis in the inferoposterior, lateral and apical medel. Septal motion consistent with conduction abnormality. Doppler and Color Flow revealed trace tricuspid regurgitation. There is moderate pulmonary hypertensi on. The PA pressure was estimated at 44 mmHg. The right ventricle is moderately to severely dilated. Signed by : Akira Hyde, Electronically Approved : 09/24/2019 08:29:36
== END 2019-09-23 18:05 | disposition home or self-care (01) | DRG 247 ==
LOC: ER 03:13 → 6 SOUTH 05:45
PROVIDERS: ADMIT Internal Medicine; ATTEND Internal Medicine
PROC: 027035Z Dilation of Coronary Artery, One Artery with Two Drug-eluting Intraluminal Devices, Percutaneous Approach (ICD-10-PCS; principal; 2019-09-20)
PROC: 02C03ZZ Extirpation of Matter from Coronary Artery, One Artery, Percutaneous Approach (ICD-10-PCS; 2019-09-20)
PROC: 3E073PZ Introduction of Platelet Inhibitor into Coronary Artery, Percutaneous Approach (ICD-10-PCS; 2019-09-20)
PROC: 4A023N7 Measurement of Cardiac Sampling and Pressure, Left Heart, Percutaneous Approach (ICD-10-PCS; 2019-09-20)
PROC: B2111ZZ Fluoroscopy of Multiple Coronary Arteries using Low Osmolar Contrast (ICD-10-PCS; 2019-09-20)
DX: I21.4 Non-ST elevation (NSTEMI) myocardial infarction (principal); Z68.41 Body mass index [BMI] 40.0-44.9, adult; I25.110 Atherosclerotic heart disease of native coronary artery with unstable angina pectoris; E11.9 Type 2 diabetes mellitus without complications; E66.01 Morbid (severe) obesity due to excess calories; E78.00 Pure hypercholesterolemia, unspecified; E78.5 Hyperlipidemia, unspecified; F17.210 Nicotine dependence, cigarettes, uncomplicated; F80.81 Childhood onset fluency disorder; I11.0 Hypertensive heart disease with heart failure; I50.9 Heart failure, unspecified; J44.9 Chronic obstructive pulmonary disease, unspecified; Z82.49 Family history of ischemic heart disease and other diseases of the circulatory system; Z95.5 Presence of coronary angioplasty implant and graft; K21.9 Gastro-esophageal reflux disease without esophagitis; M19.90 Unspecified osteoarthritis, unspecified site; I77.1 Stricture of artery; Z88.8 Allergy status to other drugs, medicaments and biological substances; Z79.899 Other long term (current) drug therapy; Z20.828 Contact with and (suspected) exposure to other viral communicable diseases
CPT/HCPCS: 36415; 37184; 71045; 80053; 80061; 81001; 82553; 82728; 82962; 83605; 83615; 83690; 83735; 83880; 84443; 84484; 85025; 85027; 85347; 85610; 85730; 87426; 92928; 93005; 93454; 99152; 99153; C1713; C1725; C1757; C1769; C1874; C1887; C1892; C8929; J1644; J1815; J2250; J2270; J2405; J3010; J3490; Q9956; Q9967; 99291-25; G0378; J3246; U0003-CS